=== PATIENT | female | born 1930 | race Hispanic/Latino ===

== ENCOUNTER 2017-04-28 10:49 | Emergency (ER) | payer MEDICARE, OTHER ==
[2017-04-28 11:53] LABS: Urine Bilirubin Negative (NEGATIVE); Urine Ketone Negative (NEGATIVE); Urine Nitrite Negative (NEGATIVE); Urine Protein Negative (NEGATIVE); Urine Specific Gravity <=1.005 SP.GR. (1.005-1.010); Urine Urobilinogen Normal (NORMAL); Urine pH 6.5 pH (5.0-7.0)
[2017-04-28 12:03] LABS: Urine Amorphous Sediment Moderate - 2+ (NONE-FEW); Urine Appearance Clear; Urine Bacteria None Seen; Urine Blood 5 /ul (NEGATIVE); Urine Color Yellow; Urine RBC TRACE /hpf (0-5); Urine WBC TRACE /hpf (0-5)
--- NOTE | 2017-04-28 12:10 | ERNOTE ---
ER Female HPI Stated Complaint: DIFFICULTY URINATING Presenting Symptoms: other Time Seen by Provider: 04/28/17 11:48 Source: patient, family Exam Limitations: no limitations Immunizations: IMMUNIZATION HX Immunizations Up to Date Yes History of Influenza Vaccine Yes Hx Pneumococcal Vaccination Yes Allergies/Adverse Reactions: Allergies streptomycin [Streptomycin] Allergy (Severe, Verified 04/28/17 11:00) "PASSED OUT" tramadol Allergy (Severe, Verified 04/28/17 11:00) "FELT LIKE THINGS WERE CLOSING UP" ANAPHYLAXIS levofloxacin [From Levaquin] Allergy (Verified 04/28/17 11:00) Other Home Medications: HOME MEDICATIONS Albuterol Sulfate [Albuterol Sulfate 2.5 MG/0.5ML] 2.5 mg IH BID 09/19/13 [Last Taken Unknown] Cetirizine HCl [Allergy Relief] 10 mg PO DAILY 09/19/13 [Last Taken 09/18/13] Pantoprazole Sodium [Protonix] 20 mg PO BID #60 tablet. 04/21/15 [Last Taken Unknown] Wheat Dextrin [Benefiber] 2 tsp PO DAILY #236 gm 04/26/15 [Last Taken Unknown] Beta-Carotene(A) W-C , E/Min [Ocuvite] 1 tab PO DAILY 12/13/15 [Last Taken Unknown] Calcium Carbonate/Vitamin D3 [Calcium 500+D Tablet Chew] 2 each PO DAILY [Last Taken Unknown] Ginkgo Biloba [place] Extract [Ginkgo Biloba] 400 mg PO DAILY 12/13/15 [Last Taken Unknown] Albuterol Sulfate [Ventolin HFA] 2 puff INH Q6H PRN 12/18/15 [Last Taken Unknown ] Cyanocobalamin [Vitamin B-12] 1,000 mcg PO DAILY 12/18/15 [Last Taken Unknown] FA/Vit C/E/Zinc/Copper/Lut/Ana [Ocuvel Capsule] 1 each PO DAILY 12/18/15 [Last Taken Unknown] Multivit with Calcium,Iron,Min [Women's Daily Formula] 1 tab PO BID 12/18/15 [ Last Taken Unknown] oxyCODONE HCL/ACETAMINOPHEN [Percocet 5 MG/325 MG] 5 - 325 mg PO Q6H PRN [Last Taken Unknown] Potassium 99 mg PO DAILY 03/05/16 [Last Taken Unknown] Budesonide/Formoterol Fumarate [Symbicort 160-4.5 Mcg Inhaler] 2 puff IH BID 10/31 [Last Taken Unknown] Furosemide [Lasix] 40 mg PO DAILY 04/21/17 [Last Taken Unknown] amLODIPine BESYLATE [Norvasc] 5 mg PO HS 04/21/17 [Last Taken Unknown] Budesonide/Formoterol Fumarate [Symbicort 160-4.5 Mcg Inhaler] 2 puff INH BID [Last Taken Unknown] predniSONE [Prednisone] 40 mg PO DAILY 04/28/17 [Last Taken Unknown] - History of Present Illness Narrative: Patient is here for urinary retention. She states that over the last few days she has only been able to urinate small amounts, though she feels like she has to go. She has had abdominal pain for over a months that has increased over the last week. Dr Castro ordered a CT for her which she had prior to coming here. She was seen in the ER a week ago for back pain, started on percocet, she has been constipated since. Timing: Present: getting worse Prior Abdominal Problems: Absent: none, recent trauma Associated Symptoms: Present: vomiting - last night, has been able to eat since. Absent: fever/chills, nausea Prior Treatment: Present: recently seen. Absent: currently on antibiotics Review of Systems - Review of Systems Constitutional: Present: malaise. Absent: recent illness, fever ENT: Absent: nose congestion, sore throat Respiratory: Absent: shortness of breath Cardiology: Absent: chest pain Gastrointestinal/Abdominal: Present: vomiting - yesterday, eating today Genitourinary: Present: See HPI Musculoskeletal: Present: back pain Neurological: Present: weakness - generalized - Patient's Past Medical History Patient History - Medical: Anemia, Anxiety, GERD, Osteoarthritis, Osteoporosis Patient History - Cardiac/Respiratory: COPD, Hypertension, Hyperlipidemia Patient History - Cancer: No Hx of Cancer Patient History - Surgical Procedures: Appendectomy, Cholecystectomy, Colonoscopy, Hysterectomy, T & A Patient History - Other: None LMP (females 10-50): post men - Family History Grandfather-Paternal Family History - Medical: , No pertinent hx Family History - Cardiac/Respiratory: No pertinent hx Grandmother-Paternal Family History - Medical: , No pertinent hx Family History - Cardiac/Respiratory: No pertinent hx Mother Family History - Medical: , No pertinent hx Family History - Cardiac/Respiratory: CHF Father Family History - Medical: , No pertinent hx Family History - Cardiac/Respiratory: No pertinent hx - Social History Living Situations: home Abuse History: No History of abuse Psych History: No pertinent hx Smoking Status: Never smoker Alcohol Use: none Drug Use: none - Immunizations Immunizations Up to Date: Yes Hx Pneumococcal Vaccination: Yes History of Influenza Vaccine: Yes Physical Exam - Physical Exam General Appearance: Present: wd/wn, alert, mild distress Eye Exam: Normal inspection: bilateral, PERRL: bilateral Respiratory: Present: no respiratory distress, normal breath sounds, no accessory muscle use, decreased breath sounds Cardiovascular/Chest: Present: regular rate, rhythm, no murmur Pelvic Exam: Present: other - cystocele Extremity Exam: Present: pedal edema Neurological Exam: Present: alert, oriented, normal mood/affect Skin Exam: Present: normal color, warm/dry ED Progress - Results and Orders Patient's Lab Results:: I have reviewed the patient's lab results. - Vital Signs Patient's Vital Signs:: I have reviewed the patient's vital signs. Vital Signs: Vital Signs 04/28/17 04/28/17 10:52 11:31 Temperature 37.0 C Pulse Rate 73 72 Respiratory 12 Rate Blood Pressure 158/64 154/58 O2 Sat by Pulse 97 99 Oximetry - Progress/Reassessment Chief Complaint: Genitourinary Problem Progress Note-Subjective: 04/28/17 11:[address] findings with radiologist (left inguinal hernia, possible cystocele) discussed findings with patient and family 04/28/17 12:10 discussed lab results with patient and family, feeling much better after catheter insertion 04/28/17 12:[address] Shetty for for possible pessary placement 04/28/17 12:[address] Castro on plan 04/28/17 12:34 discussed plan with patient and family constipation improved by CT contrast Departure Clinical Impression: Urinary retention Cystocele Qualifiers: Cystocele location: midline Qualified Code(s): N81.11 - Cystocele, midline - Departure Disposition: Home self-care Condition: Good Instructions: Acute Urinary Retention, Female, [id number] Additional Instructions: if you start to get constipated from the pain medication again start taking senokot follow up with Dr Shetty on Wednesday Referrals: Antonino Shetty DO [Staff Physician] - 05/03/17 9:00 am
[2017-04-28 13:02] VITALS: BP 148/59
== END 2017-04-28 13:03 | disposition home or self-care (01) ==
LOC: ER 10:49
PROC: 0T9B70Z Drainage of Bladder with Drainage Device, Via Natural or Artificial Opening (ICD-10-PCS; principal; 2017-04-28)
PROC: 4A0D7LZ Measurement of Urinary Volume, Via Natural or Artificial Opening (ICD-10-PCS; 2017-04-28)
DX: N81.11 Cystocele, midline (principal); R33.9 Retention of urine, unspecified; R10.84 Generalized abdominal pain; I10 Essential (primary) hypertension; K21.9 Gastro-esophageal reflux disease without esophagitis; J44.9 Chronic obstructive pulmonary disease, unspecified

== ENCOUNTER 2017-04-30 11:40 | Inpatient (IN) | payer MEDICARE, OTHER ==
[2017-04-30] MEDS ORDERED: ONDANSETRON HCL/PF 2 MG/ML VIAL IV ONE (12:05)
--- NOTE | 2017-04-30 12:18 | ERNOTE ---
ER Female HPI Date of Service: 04/30/17 Stated Complaint: DARK URINE IN CATHETER Presenting Symptoms: other - dark urine Time Seen by Provider: 04/30/17 11:55 Source: patient Exam Limitations: no limitations Immunizations: IMMUNIZATION HX Immunizations Up to Date Yes History of Influenza Vaccine Yes Hx Pneumococcal Vaccination Yes Allergies/Adverse Reactions: Allergies streptomycin [Streptomycin] Allergy (Severe, Verified 04/30/17 11:55) "PASSED OUT" tramadol Allergy (Severe, Verified 04/30/17 11:55) "FELT LIKE THINGS WERE CLOSING UP" ANAPHYLAXIS levofloxacin [From Levaquin] Allergy (Verified 04/30/17 11:55) Other Home Medications: HOME MEDICATIONS Albuterol Sulfate [Albuterol Sulfate 2.5 MG/0.5ML] 2.5 mg IH BID 09/19/13 [Last Taken Unknown] Cetirizine HCl [Allergy Relief] 10 mg PO DAILY 09/19/13 [Last Taken 09/18/13] Pantoprazole Sodium [Protonix] 20 mg PO BID #60 tablet. 04/21/15 [Last Taken Unknown] Wheat Dextrin [Benefiber] 2 tsp PO DAILY #236 gm 04/26/15 [Last Taken Unknown] Beta-Carotene(A) W-C , E/Min [Ocuvite] 1 tab PO DAILY 12/13/15 [Last Taken Unknown] Calcium Carbonate/Vitamin D3 [Calcium 500+D Tablet Chew] 2 each PO DAILY [Last Taken Unknown] Ginkgo Biloba [place] Extract [Ginkgo Biloba] 400 mg PO DAILY 12/13/15 [Last Taken Unknown] Albuterol Sulfate [Ventolin HFA] 2 puff INH Q6H PRN 12/18/15 [Last Taken Unknown ] Cyanocobalamin [Vitamin B-12] 1,000 mcg PO DAILY 12/18/15 [Last Taken Unknown] FA/Vit C/E/Zinc/Copper/Lut/Ana [Ocuvel Capsule] 1 each PO DAILY 12/18/15 [Last Taken Unknown] Multivit with Calcium,Iron,Min [Women's Daily Formula] 1 tab PO BID 12/18/15 [ Last Taken Unknown] oxyCODONE HCL/ACETAMINOPHEN [Percocet 5 MG/325 MG] 5 - 325 mg PO Q6H PRN 08/03/ 16 [Last Taken Unknown] Potassium 99 mg PO DAILY 03/05/16 [Last Taken Unknown] Budesonide/Formoterol Fumarate [Symbicort 160-4.5 Mcg Inhaler] 2 puff IH BID 10/31 [Last Taken Unknown] Furosemide [Lasix] 40 mg PO DAILY 04/21/17 [Last Taken Unknown] amLODIPine BESYLATE [Norvasc] 5 mg PO HS 04/21/17 [Last Taken Unknown] Budesonide/Formoterol Fumarate [Symbicort 160-4.5 Mcg Inhaler] 2 puff INH BID [Last Taken Unknown] predniSONE [Prednisone] 40 mg PO DAILY 04/28/17 [Last Taken Unknown] - History of Present Illness Narrative: Pt. comes in with daughters and c/o dark urine for two days. Daughters also state that pt. has had increased weakness, fatigue, nausea and vomiting and constipation. Daughters state that pt. had a small BM two days ago but has not had any others and is not eating or drinking very much because of her abdominal symptoms. Pt. was seen here three days ago and was diagnosed with bladder prolapse and a urinary catheter was placed. Pt. nx0mgls any pain where her catheter is placed at. Review of Systems - Review of Systems Constitutional: Present: weakness, fatigue, malaise. Absent: fever, chills EYE: Present: no symptoms reported. Absent: eye pain, double vision, vision changes ENT: Present: no symptoms reported. Absent: nose pain, nose congestion Respiratory: Present: no symptoms reported. Absent: shortness of breath, cough , wheezing Cardiology: Present: no symptoms reported. Absent: chest pain, palpitations, edema Gastrointestinal/Abdominal: Present: nausea, vomiting, constipation, abdominal pain, eating less, drinking less. Absent: diarrhea Genitourinary: Present: decreased urinary output, other - dark urine Musculoskeletal: Present: back pain - L flank. Absent: muscle pain, neck pain, joint pain, joint swelling Neurological: Present: no symptoms reported. Absent: headache, dizziness/light- headedness, numbness, tingling Endocrine: Present: no symptoms reported All Other Systems: All systems neg except as marked - Patient's Past Medical History Patient History - Medical: Anemia, Anxiety, GERD, Osteoarthritis, Osteoporosis Patient History - Cardiac/Respiratory: COPD, Hypertension, Hyperlipidemia Patient History - Cancer: No Hx of Cancer Patient History - Surgical Procedures: Appendectomy, Cholecystectomy, Colonoscopy, Hysterectomy, T & A Patient History - Other: None - Family History Grandfather-Paternal Family History - Medical: , No pertinent hx Family History - Cardiac/Respiratory: No pertinent hx Grandmother-Paternal Family History - Medical: , No pertinent hx Family History - Cardiac/Respiratory: No pertinent hx Mother Family History - Medical: , No pertinent hx Family History - Cardiac/Respiratory: CHF Father Family History - Medical: , No pertinent hx Family History - Cardiac/Respiratory: No pertinent hx - Social History Living Situations: home Abuse History: No History of abuse Psych History: No pertinent hx - Immunizations Immunizations Up to Date: Yes Hx Pneumococcal Vaccination: Yes History of Influenza Vaccine: Yes Physical Exam - Physical Exam General Appearance: Present: wd/wn, alert, no apparent distress Head Exam: Present: normal inspection, no evidence of injury Eye Exam: Normal inspection: bilateral, PERRL: bilateral, EOMI: bilateral Ears, Nose, Throat: Present: normal except -, dry mucous membranes Neck: Present: normal inspection, nontender, supple, full range of motion. Absent: lymphadenopathy (R), lymphadenopathy (L) Respiratory: Present: no respiratory distress, normal breath sounds, no accessory muscle use, chest nontender, lungs clear Cardiovascular/Chest: Present: regular rate, rhythm, no murmur, normal peripheral pulses Gastrointestinal/Abdominal: Present: tenderness - generalized LLQ, LUQ, abnormal bowel sounds - hypo tympanic Back Exam: Present: normal inspection, normal range of motion, no vertebral tenderness, CVA tenderness (L) Extremity Exam: Present: normal inspection, non-tender, normal range of motion, no edema Neurological Exam: Present: alert, oriented, normal mood/affect, no motor/ sensory deficits, pbx supervisor II-XII nml as tested, normal cerebellar test Skin Exam: Present: warm/dry, pallor, other - poor skin turgor ED Progress - Date and Time Seen: Date and Time: 04/30/17 13:[address] Castro and he accepts pt. for admission and we will continue pt. on slow fluids and abx and start enemas and laxatives. - Results and Orders Patient's Lab Results:: I have reviewed the patient's lab results. - Vital Signs Patient's Vital Signs:: I have reviewed the patient's vital signs. Vital Signs: Vital Signs 04/30/17 11:49 Temperature 36.0 C L Pulse Rate 72 Respiratory 12 Rate Blood Pressure 146/49 O2 Sat by Pulse 97 Oximetry - EKG EKG: NSR EKG read: Interp. by me - X-Ray X-Ray #1 X-Ray: abdomen Interpretation: Reviewed by me X-ray Comments: no free air, nonobstructive bowel gas pattern, moderate stool retention. - Progress/Reassessment Chief Complaint: Genitourinary Problem Departure Clinical Impression: Urinary retention, Constipation due to opioid therapy, Electrolyte and fluid disorder, Hyponatremia Cystocele Qualifiers: Cystocele location: midline Qualified Code(s): N81.11 - Cystocele, midline Nausea and vomiting Qualifiers: Vomiting type: unspecified Vomiting Intractability: non-intractable Qualified Code(s): R11.2 - Nausea with vomiting, unspecified - Departure Disposition: [facility] Condition: Fair Referrals: Mulugeta Castro DO [Primary Care Provider] -
[2017-04-30] MEDS ORDERED: ONDANSETRON HCL/PF 2 MG/ML VIAL ONE (12:22)
[2017-04-30] MEDS: NORMAL SALINE 1,000 ML IV ONE ×2 (12:32→20:25)
[2017-04-30 12:33] LABS: Urine Bilirubin Negative (NEGATIVE); Urine Blood 250 /ul (NEGATIVE); Urine Ketone 50 mg/dL (NEGATIVE); Urine Protein 30 mg/dL (NEGATIVE); Urine Specific Gravity 1.015 SP.GR. (1.005-1.010); Urine Urobilinogen Normal (NORMAL)
[2017-04-30 12:41] LABS: Hematocrit 28.1 % (37.0-47.0); Hemoglobin 10.2 gm/dL (12.5-16.0); Mean Cell Volume 83.1 fl (78-100); Mean Corpuscular Hemoglobin 30.2 pg (27-31); Mean Corpuscular Hgb Conc 36.3 g/dl (32-36); Neutrophil # 6.7 K/mm3 (1.3-6.0); Neutrophil % 88.1 % (42-75.0); Platelet Count 342 K/mm3 (150-450); Red Blood Count 3.38 M/mm3 (4.2-5.4); Red Cell Distribution Width 12.8 % (11.5-14.0); White Blood Count 7.6 K/mm3 (4.0-10.5)
[2017-04-30 12:48] LABS: Urine Appearance Cloudy; Urine Bacteria 3+; Urine Color Dark Yellow; Urine Nitrite Positive (NEGATIVE); Urine RBC >50 /hpf (0-5)
[2017-04-30 12:49] LABS: Albumin * 3.2 gm/dl (3.4-5.0); Anion Gap 8.7 mmol/L (6.8-13.8); Bilirubin, Total 0.5 mg/dL (0.0-1.1); CRP 0.5 mg/dL (0.0-0.9); Ca. Corrected For Albumin 8.2 mg/dL (8.4-10.2); Calcium * 7.9 mg/dL (7.9-10.9); Potassium 3.7 mmol/L (3.4-4.6); Total Protein 6.7 gm/dL (6.2-8.2)
[2017-04-30] MEDS ORDERED: KETOROLAC TROMETHAMINE 30 MG/ML VIAL IV ONE (13:51)
[2017-04-30] MEDS ORDERED: KETOROLAC TROMETHAMINE 30 MG/ML VIAL ONE (13:53)
[2017-04-30] MEDS ORDERED: MAGNESIUM CITRATE 300 ML BTL PO ONE (15:36)
[2017-04-30] MEDS ORDERED: FUROSEMIDE 10 MG/ML VIAL IV ONE (16:00)
[2017-04-30] MEDS ORDERED: ALBUTEROL SULFATE 2.5 MG/0.5 ML VIAL.NEB IH PRN (16:00)
[2017-04-30] MEDS: oxyCODONE HCL/ACETAMINOPHEN 1 TAB TABLET PO PRN ×2 (16:14→21:59)
--- NOTE | 2017-04-30 17:50 | HP ---
Chief Complaint - Chief Complaint Date of Service: 04/30/17 Time of Service: 16:00 Chief Complaint: Weakness, poor urine output, nausea, vomiting History of Present Illness: Alem is an 86 yo female presenting to [facility] ER with weakness, nausea, vomiting, poor urinary output, and back pain. She was seen in the ER recently with urinary retention that was suspected to be secondary to urocele. She had a schmidt catheter with leg bag placed and set up with gynecology, who she has not seen yet. Patient's condition at home worsened with more weakness, nausea, vomiting, and poor oral intake. She returned to the ER today. She reports mid back pain without radiation. Family notes urine has been dark. She has been taking lasix daily but legs remain edematous. - Patient's Past Medical History Patient History - Medical: Anemia, Anxiety, GERD, Osteoarthritis, Osteoporosis Patient History - Cardiac/Respiratory: COPD, Hypertension, Hyperlipidemia Patient History - Cancer: No Hx of Cancer Patient History - Surgical Procedures: Appendectomy, Cholecystectomy, Colonoscopy, Hysterectomy, T & A Patient History - Other: None - Family History Grandfather-Paternal Family History - Medical: , No pertinent hx Family History - Cardiac/Respiratory: No pertinent hx Grandmother-Paternal Family History - Medical: , No pertinent hx Family History - Cardiac/Respiratory: No pertinent hx Mother Family History - Medical: , No pertinent hx Family History - Cardiac/Respiratory: CHF Family History - Cancer: Colon Father Family History - Medical: , No pertinent hx Family History - Cardiac/Respiratory: No pertinent hx Family History - Cancer: No pertinent family hx Brother Family History - Medical: Sister Family History - Medical: - Social History Living Situations: home Abuse History: No History of abuse Psych History: No pertinent hx Smoking Status: Never smoker Have you smoked in the past 12 months: No Do you dip or chew tobacco: No Patient requests Smoking Cessation Consult: No Initiate information on Smoking Cessation: No Alcohol Use: none Drug Use: none - Immunizations Immunizations Up to Date: Yes Hx Pneumococcal Vaccination: Yes History of Influenza Vaccine: Yes Review Of Systems (GEN) - Review of Systems Generalized/Overall Review: Present: Weakness, Chills, Fatigue. Absent: Fever EENTM: Present: No Symptoms Reported Respiratory: Present: No Symptoms Reported Cardiac: Present: Edema. Absent: Chest Pain Abdominal: Present: Nausea, Vomiting, Abdominal Pain, Constipation Genitourinary: Present: Retention - Currently with schmidt Musculoskeletal: Present: Back Pain, Other - Jaw dislocates and locks when she yawns Neurological: Present: No Symptoms Reported Skin: Present: No Symptoms Reported Immunizations: IMMUNIZATION HX Immunizations Up to Date Yes History of Influenza Vaccine Yes Hx Pneumococcal Vaccination Yes Allergies/Adverse Reactions: Allergies Allergy/AdvReac Type Severity Reaction Status Date / Time streptomycin [Streptomycin] Allergy Severe "PASSED Verified 04/30/17 14:48 OUT" tramadol Allergy Severe "FELT LIKE Verified 04/30/17 14:48 THINGS WERE CLOSING UP" levofloxacin [From Levaquin] Allergy Other Verified 04/30/17 14:48 Home Medications: HOME MEDICATIONS Cetirizine HCl [Allergy Relief] 10 mg PO DAILY 09/19/13 [Last Taken 09/18/13] Pantoprazole Sodium [Protonix] 20 mg PO BID #60 tablet. 04/21/15 [Last Taken Unknown] Wheat Dextrin [Benefiber] 2 tsp PO DAILY #236 gm 04/26/15 [Last Taken Unknown] Beta-Carotene(A) W-C , E/Min [Ocuvite] 1 tab PO DAILY 12/13/15 [Last Taken Unknown] Calcium Carbonate/Vitamin D3 [Calcium 500+D Tablet Chew] 2 each PO DAILY [Last Taken Unknown] Ginkgo Biloba [place] Extract [Ginkgo Biloba] 400 mg PO DAILY 12/13/15 [Last Taken Unknown] Albuterol Sulfate [Ventolin HFA] 2 puff INH Q6H PRN 12/18/15 [Last Taken Unknown ] Cyanocobalamin [Vitamin B-12] 1,000 mcg PO DAILY 12/18/15 [Last Taken Unknown] FA/Vit C/E/Zinc/Copper/Lut/Ana [Ocuvel Capsule] 1 each PO DAILY 12/18/15 [Last Taken Unknown] Multivit with Calcium,Iron,Min [Women's Daily Formula] 1 tab PO BID 12/18/15 [ Last Taken Unknown] oxyCODONE HCL/ACETAMINOPHEN [Percocet 5 MG/325 MG] 5 - 325 mg PO Q6H PRN [Last Taken Unknown] Potassium 99 mg PO DAILY 03/05/16 [Last Taken Unknown] Furosemide [Lasix] 40 mg PO DAILY PRN 04/21/17 [Last Taken Unknown] amLODIPine BESYLATE [Norvasc] 5 mg PO HS 04/21/17 [Last Taken Unknown] Budesonide/Formoterol Fumarate [Symbicort 160-4.5 Mcg Inhaler] 2 puff INH BID [Last Taken Unknown] predniSONE [Prednisone] 40 mg PO DAILY 04/28/17 [Last Taken Unknown] Exam - Exam Vital Signs: Vital Signs - Last Taken Temp 36.8 C 04/30/17 15:15 Pulse 75 04/30/17 16:14 Resp 18 04/30/17 15:15 BP 146/49 04/30/17 16:14 Pulse Ox 97 04/30/17 15:15 Constitutional: Present: Alert, Oriented x3, Cooperative ENT Exam: Present: hearing grossly normal Eye Exam: bilateral eye: normal inspection Neck: Present: non-tender, full range of motion, supple, normal inspection Respiratory: Present: lungs clear, normal breath sounds Cardiovascular/Chest: Present: regular rate, rhythm, no murmur, edema - 3+ bilateral lower extremities Abdomen: Present: Normal bowel sounds, soft, nontender, nondistended, tender - diffuse Skin Exam: Present: normal color, warm/dry, no cyanosis Neurologic: Present: alert, normal mood/affect, oriented x 3 Appearance: Present: appropriate appearance, appropriate insight Eye contact: Present: cooperative, good eye contact, normal speech Diagnostic Studies: Abnormal Lab Results 04/30/17 Range/Units 15:06 Sodium 115 L* (132-142) mmol/L Laboratory Results WBC 7.6 K/mm3 (4.0-10.5) 04/30/17 12:25 RBC 3.38 M/mm3 (4.2-5.4) L 04/30/17 12:25 Hgb 10.2 gm/dL (12.5-16.0) L 04/30/17 12:25 Hct 28.1 % (37.0-47.0) L 04/30/17 12:25 MCV 83.1 fl (78-100) 04/30/17 12:25 MCH 30.2 pg (27-31) 04/30/17 12:25 MCHC 36.3 g/dl (32-36) H 04/30/17 12:25 RDW 12.8 % (11.5-14.0) 04/30/17 12:25 Plt Count 342 K/mm3 (150-450) 04/30/17 12:25 MPV 9.0 fl (6.0-9.5) 04/30/17 12:25 Immature Gran % (Auto) 0.40 % (0.001-0.429) 04/30/17 12:25 Immature Gran # (Auto) 0.03 K/mm3 (0.000-0.0310) 04/30/17 12:25 Neutrophils % 88.1 % (42-75.0) H 04/30/17 12:25 Lymphocytes % 5.5 % (20-51) L 04/30/17 12:25 Monocytes % 5.8 % (0.0-9) 04/30/17 12:25 Eosinophils % 0.1 % (0.0-3.0) 04/30/17 12:25 Basophils % 0.1 % (0.0-1.0) 04/30/17 12:25 Nucleated RBC % 0.0 k/mm3 (0-1) 04/30/17 12:25 Neutrophils # 6.7 K/mm3 (1.3-6.0) H 04/30/17 12:25 Lymphocytes # 0.4 k/mm3 (1.5-3.5) L 04/30/17 12:25 Monocytes # 0.4 k/mm3 (0.0-1.0) 04/30/17 12:25 Eosinophils # 0.0 k/mm3 (0.0-0.7) 04/30/17 12:25 Absolute Basophils 0.0 k/mm3 (0.0-0.1) 04/30/17 12:25 ESR 19 mm/hr (0-15) H 04/30/17 12:25 Sodium 115 mmol/L (132-142) L* 04/30/17 15:06 Plasma Sodium 111 mmol/L (130-142) L* 04/30/17 12:25 Potassium 3.7 mmol/L (3.4-4.6) 04/30/17 12:25 Chloride 78 mmol/L (97-106) L 04/30/17 12:25 Carbon Dioxide 28.0 mmol/L (24-32.6) 04/30/17 12:25 Anion Gap 8.7 mmol/L (6.8-13.8) 04/30/17 12:25 BUN 9 mg/dL (3-23) 04/30/17 12:25 Creatinine 0.50 mg/dL (0.4-1.4) 04/30/17 12:25 Est GFR (Non-Af Amer) 124 mL/min (60-130) D 04/30/17 12:25 BUN/Creatinine Ratio 18.0 (9.0-21.6) 04/30/17 12:25 Random Glucose 117 mg/dL (70-110) H 04/30/17 12:25 Lactic Acid, Venous 0.8 mmol/L (0.4-1.9) 04/30/17 12:25 Calcium 7.9 mg/dL (7.9-10.9) 04/30/17 12:25 Calcium Adj for Albumin 8.2 mg/dL (8.4-10.2) L 04/30/17 12:25 Total Bilirubin 0.5 mg/dL (0.0-1.1) 04/30/17 12:25 AST 29 U/L (0-48) 04/30/17 12:25 ALT 41 U/L (19-67) 04/30/17 12:25 Alkaline Phosphatase 94 U/L (50-170) 04/30/17 12:25 C-Reactive Prot, Quant 0.5 mg/dL (0.0-0.9) 04/30/17 12:25 B-Natriuretic Peptide 1142 pg/mL (5-550) H 04/30/17 12:25 Total Protein 6.7 gm/dL (6.2-8.2) 04/30/17 12:25 Albumin 3.2 gm/dl (3.4-5.0) L 04/30/17 12:25 Urine Color Dark yellow 04/30/17 12:27 Urine Appearance Cloudy 04/30/17 12:27 Urine pH 6.0 pH (5.0-7.0) 04/30/17 12:27 Ur Specific [place] 1.015 SP.GR. (1.005-1.010) 04/30/17 12:27 Urine Protein 30 mg/dL (NEGATIVE) H 04/30/17 12:27 Urine Glucose (UA) Negative mg/dL (NEGATIVE) 04/30/17 12:27 Urine Ketones 50 mg/dL (NEGATIVE) 04/30/17 12:27 Urine Blood 250 /ul (NEGATIVE) H 04/30/17 12:27 Urine Nitrate Positive (NEGATIVE) H 04/30/17 12:27 Urine Bilirubin Negative mg/dl (NEGATIVE) 04/30/17 12:27 Prot Sulfosalicylic Acd 2+ mg/dL (0) H 04/30/17 12:27 Urine Urobilinogen Normal EU/dl (NORMAL) 04/30/17 12:27 Ur Leukocyte Esterase 100 /ul (NEGATIVE) H 04/30/17 12:27 Urine RBC >50 /hpf (0-5) H 04/30/17 12:27 Urine WBC 5-10 /hpf (0-5) H 04/30/17 12:27 Ur Epithelial Cells None seen /hpf (0-5) 04/30/17 12:27 Urine Bacteria 3+ (NONE) H 04/30/17 12:27 Urine Culture Comments Culture to follow 04/30/17 12:27 Assessment/Plan - Narrative Narrative: Alem is an 86 yo female with: 1) Severe Hyponatremia of 111 - This critical sodium needs to be corrected slowly. Currently on 125ml/hr of Normal saline as she appears hypovolumic ( intravascularily). She is also third spacing and will therefore treat with IV lasix. Will monitor sodium and adjust correction as needed. Will need >2 midnights to correct sodium and monitor stability. 2) UTI - Treated with Rocephin, culture pending. 3) Constipation - Stool retention on abdominal xray. Will give magnesium citrate. Monitor results 4) Back pain - Continue percocet 5) Nausea/vomiting - Zofran prn, may be secondary to constipation. - Assessment/Plan (1) Hyponatremia Problem: Acute (2) UTI (urinary tract infection) Problem: Acute (3) Constipation due to opioid therapy Problem: Acute (4) Cystocele Problem: Acute Qualifiers: Cystocele location: midline Qualified Code(s): N81.11 - Cystocele, midline (5) Nausea and vomiting Problem: Acute Qualifiers: Vomiting type: unspecified Vomiting Intractability: non-intractable Qualified Code(s): R11.2 - Nausea with vomiting, unspecified (6) Urinary retention Problem: Acute (7) Back pain Problem: Acute
[2017-04-30] MEDS: FLUTICASONE/SALMETEROL 14 PUFF DISK.W.DEV IH SCH (20:18)
[2017-04-30] MEDS: amLODIPine BESYLATE 5 MG TABLET PO SCH (20:19)
[2017-04-30] MEDS: PANTOPRAZOLE SODIUM 20 MG TABLET.DR PO SCH (20:19)
[2017-04-30 22:49] LABS: Anion Gap 7.7 mmol/L (6.8-13.8); BUN/Creatinine Ratio 20.4 (9.0-21.6); Calcium * 7.3 mg/dL (7.9-10.9); Carbon Dioxide 28.7 mmol/L (24-32.6); Estimated Creat Clear 56.2; Potassium 3.4 mmol/L (3.4-4.6)
[2017-05-01] MEDS: oxyCODONE HCL/ACETAMINOPHEN 1 TAB TABLET PO PRN (04:08)
[2017-05-01] MEDS: NORMAL SALINE 1,000 ML IV PRN ×2 (04:13→18:07)
[2017-05-01] MEDS: PANTOPRAZOLE SODIUM 20 MG TABLET.DR PO SCH ×2 (07:35→20:47)
[2017-05-01] MEDS: FLUTICASONE/SALMETEROL 14 PUFF DISK.W.DEV IH SCH ×2 (09:23→20:47)
[2017-05-01] MEDS: CYANOCOBALAMIN 1,000 MCG TABLET PO SCH (09:23)
[2017-05-01] MEDS: LORATADINE 10 MG TABLET PO SCH (09:23)
[2017-05-01] MEDS: BETA-CAROTENE(A) W-C , E/MIN 1 TAB TABLET PO SCH (09:23)
[2017-05-01] MEDS ORDERED: oxyCODONE HCL/ACETAMINOPHEN 1 TAB TABLET PO PRN (10:42)
[2017-05-01] MEDS: amLODIPine BESYLATE 5 MG TABLET PO SCH (20:47)
[2017-05-02] MEDS: NORMAL SALINE 1,000 ML IV PRN ×2 (07:32→22:10)
[2017-05-02] MEDS: PANTOPRAZOLE SODIUM 20 MG TABLET.DR PO SCH ×2 (07:32→20:21)
[2017-05-02] MEDS: FLUTICASONE/SALMETEROL 14 PUFF DISK.W.DEV IH SCH ×2 (08:54→20:19)
[2017-05-02] MEDS: LORATADINE 10 MG TABLET PO SCH (08:54)
[2017-05-02] MEDS: BETA-CAROTENE(A) W-C , E/MIN 1 TAB TABLET PO SCH (08:54)
[2017-05-02] MEDS: CYANOCOBALAMIN 1,000 MCG TABLET PO SCH (08:54)
--- NOTE | 2017-05-02 10:27 | PN ---
Subjective - Date and Time Seen Date: 05/01/17 Time: 10:00 Subjective Narrative: Reports back pain and weakness. No fever, chills, nausea, or vomiting. Objective - Vitals Vitals: Last Vital Signs Selected Entries 05/01/17 06:24 Temperature 36.9 C Pulse Rate 68 Respiratory 20 Rate Blood Pressure 145/51 O2 Sat by Pulse 98 Oximetry Oxygen Delivery Room Air Method - Exam Constitutional: Present: Alert, Oriented x3, Cooperative ENT Exam: Present: hearing grossly normal Respiratory: Present: lungs clear, normal breath sounds Cardiovascular/Chest: Present: regular rate, rhythm, no murmur Abdomen: Present: Normal bowel sounds, soft, nontender, nondistended Skin Exam: Present: normal color, warm/dry, no cyanosis Assessment/Plan Plan Narrative: Continue fluids for hyponatremia. Sodium is slowly improving. Continue antibiotics for UTI. Continue schmidt catheter for retention, this may be secondary to UTI vs cystocele. Will discontinue after another day of antibiotics and see if this resolves with UTI treatment. - Problems/Diagnosis (1) Hyponatremia Problem: Acute (2) UTI (urinary tract infection) Problem: Acute (3) Constipation due to opioid therapy Problem: Acute (4) Cystocele Problem: Acute Qualifiers: Cystocele location: midline Qualified Code(s): N81.11 - Cystocele, midline Narrative: Follow up with gynecology. (5) Nausea and vomiting Problem: Resolved Qualifiers: Vomiting type: unspecified Vomiting Intractability: non-intractable Qualified Code(s): R11.2 - Nausea with vomiting, unspecified (6) Urinary retention Problem: Acute (7) Back pain Problem: Acute
[2017-05-02 10:48] LABS: Hematocrit 27.3 % (37.0-47.0); Hemoglobin 9.5 gm/dL (12.5-16.0); Mean Cell Volume 86.4 fl (78-100); Mean Corpuscular Hemoglobin 30.1 pg (27-31); Mean Corpuscular Hgb Conc 34.8 g/dl (32-36); Mean Platelet Volume 8.4 fl (6.0-9.5); Neutrophil # 5.7 K/mm3 (1.3-6.0); Neutrophil % 77.7 % (42-75.0); Platelet Count 327 K/mm3 (150-450); Red Blood Count 3.16 M/mm3 (4.2-5.4); Red Cell Distribution Width 13.6 % (11.5-14.0); White Blood Count 7.3 K/mm3 (4.0-10.5)
[2017-05-02 11:02] LABS: Albumin * 2.8 gm/dl (3.4-5.0); Anion Gap 11.3 mmol/L (6.8-13.8); BUN/Creatinine Ratio 14.6 (9.0-21.6); Bilirubin, Total 0.2 mg/dL (0.0-1.1); Calcium * 7.4 mg/dL (7.9-10.9); Carbon Dioxide 26.1 mmol/L (24-32.6); Potassium 3.4 mmol/L (3.4-4.6)
[2017-05-02] MEDS ORDERED: POTASSIUM CHLORIDE 20 MEQ TABLET.SA PO ONE (11:07)
[2017-05-02] MEDS: SENNOSIDES/DOCUSATE SODIUM 1 TAB TABLET PO SCH ×2 (11:49→20:21)
[2017-05-02] MEDS: oxyCODONE HCL/ACETAMINOPHEN 1 TAB TABLET PO SCH ×5 (11:57→23:43)
[2017-05-02] MEDS: amLODIPine BESYLATE 5 MG TABLET PO SCH (20:20)
[2017-05-03] MEDS: oxyCODONE HCL/ACETAMINOPHEN 1 TAB TABLET PO SCH ×4 (03:22→11:51)
[2017-05-03] MEDS: PANTOPRAZOLE SODIUM 20 MG TABLET.DR PO SCH (07:20)
--- NOTE | 2017-05-03 08:05 | PN ---
Subjective - Date and Time Seen Date: 05/02/17 Time: 11:23 Subjective Narrative: Feeling better but still week. No fever, chills, nause, or vomiting. Objective - Vitals Vitals: Last Vital Signs Selected Entries 05/02/17 06:11 Temperature 36.8 C Pulse Rate 69 Respiratory 18 Rate Blood Pressure 160/55 O2 Sat by Pulse 98 Oximetry Oxygen Delivery Room Air Method - Abnormal Lab Findings Abnormal Lab Findings: Abnormal Lab Results 05/02/17 05/02/17 Range/Units 10:43 10:43 RBC 3.16 L (4.2-5.4) M/mm3 Hgb 9.5 L (12.5-16.0) gm/dL Hct 27.3 L (37.0-47.0) % Neutrophils % 77.7 H (42-75.0) % Lymphocytes % 10.1 L (20-51) % Monocytes % 10.8 H (0.0-9) % Lymphocytes # 0.7 L (1.5-3.5) k/mm3 Sodium 131 L (132-142) mmol/L Est GFR (Non-Af Amer) 156 H D (60-130) mL/min Random Glucose 115 H (70-110) mg/dL Calcium 7.4 L (7.9-10.9) mg/dL Calcium Adj for Albumin 8.0 L (8.4-10.2) mg/dL Total Protein 6.0 L (6.2-8.2) gm/dL Albumin 2.8 L (3.4-5.0) gm/dl - Exam Constitutional: Present: Alert, Oriented x3, Cooperative Respiratory: Present: lungs clear, normal breath sounds Cardiovascular/Chest: Present: regular rate, rhythm, no murmur Abdomen: Present: Normal bowel sounds, soft, nontender, nondistended Skin Exam: Present: normal color, warm/dry, no cyanosis Assessment/Plan Plan Narrative: Sodium improving slowly, continue fluids. Will remove schmidt today and see if she is able to urinate on her own. - Problems/Diagnosis (1) Hyponatremia Problem: Acute (2) UTI (urinary tract infection) Problem: Acute (3) Constipation due to opioid therapy Problem: Resolved (4) Cystocele Problem: Acute Qualifiers: Cystocele location: midline Qualified Code(s): N81.11 - Cystocele, midline (5) Nausea and vomiting Problem: Resolved Qualifiers: Vomiting type: unspecified Vomiting Intractability: non-intractable Qualified Code(s): R11.2 - Nausea with vomiting, unspecified (6) Urinary retention Problem: Acute (7) Back pain Problem: Acute
--- NOTE | 2017-05-03 08:09 | DS ---
(1) Hyponatremia Problem: Acute (2) UTI (urinary tract infection) Problem: Acute (3) Constipation due to opioid therapy Problem: Resolved (4) Cystocele Problem: Acute Qualifiers: Cystocele location: midline Qualified Code(s): N81.11 - Cystocele, midline (5) Nausea and vomiting Problem: Resolved Qualifiers: Vomiting type: unspecified Vomiting Intractability: non-intractable Qualified Code(s): R11.2 - Nausea with vomiting, unspecified (6) Urinary retention Problem: Acute (7) Back pain Problem: Acute Description of Stay: Alem is an 86 yo female admitted for severe hyponatremia of 111, constipation, suspected UTI, urinary retention, back pain, and cystocele. She was suspected at being hypovolumic and treated with normal saline and sodium was closely monitored. This slowly improve back to normal over a few days. UTI was treated based on UA and culture sensitivities. She initially had a schmidt catheter in place for urinary retention, prior to discharge this was removed and she was able to urinate on her own without difficulty. Suspect the UTI caused her urinary retention. Constipation was treated with stool softeners and improved. She continued to be weak but improved and was discharged to [facility] for strengthening. After discharge from the hospital she was taken from her room to outpatient gynecology clinic for evaluation of her cystocele and possible pessary placement. From there she will then go to [facility]. Procedures Performed: none Discharge Disposition: [facility] Disposition: [facility] Condition: Good Discharge Activity: Activity as tolerated Discharge Diet: Low salt [facility] Therapy: Physicial Therapy Referrals: Mulugeta Castro DO [Primary Care Provider] - Two Weeks Problem Oriented Discharge Instructions to Patient/Family: Hyponatremia Additional Patient Instructions (free text): F/U with Dr Castro in 2 weeks. 05/18/17 at 10:00. [facility]. PT/OT to eval and tx. Prescriptions (Any new or edited meds): Sennosides/Docusate Sodium [Senokot-S] 2 tab PO HS #60 tablet Sulfamethoxazole/Trimethoprim [Bactrim Ds] 1 tab PO BID #10 tab Complete Home Medications List: Complete Home Medication List: Cetirizine HCl [Allergy Relief] 10 mg PO DAILY 09/19/13 Pantoprazole Sodium [Protonix] 20 mg PO BID #60 tablet. 04/21/15 Wheat Dextrin [Benefiber] 2 tsp PO DAILY #236 gm 04/26/15 Beta-Carotene(A) W-C , E/Min [Ocuvite] 1 tab PO DAILY 12/13/15 Calcium Carbonate/Vitamin D3 [Calcium 500+D Tablet Chew] 2 each PO DAILY Ginkgo Biloba Pegram Extract [Ginkgo Biloba] 400 mg PO DAILY 12/13/15 Albuterol Sulfate [Ventolin HFA] 2 puff INH Q6H PRN 12/18/15 Cyanocobalamin [Vitamin B-12] 1,000 mcg PO DAILY 12/18/15 FA/Vit C/E/Zinc/Copper/Lut/Ana [Ocuvel Capsule] 1 each PO DAILY 12/18/15 Multivit with Calcium,Iron,Min [Women's Daily Formula] 1 tab PO BID 12/18/15 oxyCODONE HCL/ACETAMINOPHEN [Percocet 5 MG/325 MG] 5 - 325 mg PO Q6H PRN Potassium 99 mg PO DAILY 03/05/16 Furosemide [Lasix] 40 mg PO DAILY PRN 04/21/17 amLODIPine BESYLATE [Norvasc] 5 mg PO HS 04/21/17 Budesonide/Formoterol Fumarate [Symbicort 160-4.5 Mcg Inhaler] 2 puff INH BID predniSONE [Prednisone] 40 mg PO DAILY 04/28/17 Sennosides/Docusate Sodium [Senokot-S] 2 tab PO HS #60 tablet 05/03/17 Sulfamethoxazole/Trimethoprim [Bactrim Ds] 1 tab PO BID #10 tab 05/03/17
[2017-05-03] MEDS: FLUTICASONE/SALMETEROL 14 PUFF DISK.W.DEV IH SCH (08:21)
[2017-05-03] MEDS: BETA-CAROTENE(A) W-C , E/MIN 1 TAB TABLET PO SCH (08:22)
[2017-05-03] MEDS: LORATADINE 10 MG TABLET PO SCH (08:22)
[2017-05-03] MEDS: CYANOCOBALAMIN 1,000 MCG TABLET PO SCH (08:22)
[2017-05-03 08:32] LABS: Anion Gap 7.8 mmol/L (6.8-13.8); BUN/Creatinine Ratio 8.5 (9.0-21.6); Calcium * 7.9 mg/dL (7.9-10.9); Carbon Dioxide 27.8 mmol/L (24-32.6); Estimated Creat Clear 46.7; Potassium 3.6 mmol/L (3.4-4.6)
[2017-05-03 11:18] VITALS: BP 165/74
== END 2017-05-03 13:45 | DRG 690 ==
LOC: ER 11:40 → MS 13:55 → OBSVTOIN 14:06
PROVIDERS: ADMIT Family Medicine; ATTEND Family Medicine
DX: N39.0 Urinary tract infection, site not specified (principal); E87.1 Hypo-osmolality and hyponatremia; N81.11 Cystocele, midline; K59.03 Drug induced constipation; T40.2X5A Adverse effect of other opioids, initial encounter; R11.2 Nausea with vomiting, unspecified; R33.9 Retention of urine, unspecified; M54.9 Dorsalgia, unspecified; I10 Essential (primary) hypertension; E78.5 Hyperlipidemia, unspecified; J44.9 Chronic obstructive pulmonary disease, unspecified; Z88.6 Allergy status to analgesic agent
CPT/HCPCS: 36415; 74020; 80048; 80053; 81001; 83605; 83880; 84295; 85025; 85652; 86140; 87040; 87086; 93005; 94640; 96365; 96375; 99285; J2405; 51702; 51798; 74019; 74177; 83519; 94664; 99284

== ENCOUNTER 2019-09-28 10:57 | Inpatient (IN) ==
[2019-09-28] MEDS ORDERED: BISACODYL 10 MG SUPP.RECT RC PRN (14:30)
[2019-09-28] MEDS ORDERED: SENNOSIDES/DOCUSATE SODIUM 1 TAB TABLET PO PRN (14:30)
[2019-09-28] MEDS ORDERED: ALBUTEROL SULFATE 2.5 MG/0.5 ML VIAL.NEB IH PRN (14:30)
[2019-09-28] MEDS: NORMAL SALINE 1,000 ML IV PRN (15:08)
[2019-09-28] MEDS: KETOROLAC TROMETHAMINE 15 MG/ML VIAL IV PRN ×2 (15:27→23:57)
[2019-09-28] MEDS: amLODIPine BESYLATE 5 MG TABLET PO SCH (17:17)
[2019-09-28] MEDS: SACCHAROMYCES BOULARDII 250 MG CAPSULE PO SCH (20:31)
[2019-09-28] MEDS: FLUTICASONE PROPION/SALMETEROL 14 PUFF DISK.W.DEV IH SCH (20:31)
--- NOTE | 2019-09-28 23:34 | HP ---
Chief Complaint - Chief Complaint Date of Service: 09/28/19 Time of Service: 12:30 Chief Complaint: Weakness History of Present Illness: Alem is an 89 yo female who for the last week reports having difficulty with bowel movement, abdominal pain, weakness, fatigue, and fell hitting her ribs and back. She was evaluated previously with rib xrays and abdominal xrays that showed no acute abnormalities. She came to clinic today due to worsening fatigue and weakness. Her family reports she has not been eating or drinking at home. She denies shortness of breath or chest pain. Medical History (Last Reviewed 09/28/19 @ 14:25 by Desirae Ferreira RN) Anemia Anxiety Onset Date: ~07/2013 Arthropathy Constipation, unspecified Cystocele Displaced intertrochanteric fracture of right femur, initial encounter for closed fracture Has received pneumococcal vaccination Onset Date: ~03/2018 Hip fracture Onset Date: 10/31/17 rt Nausea with vomiting, unspecified Received influenza vaccination in current influenza season prior to admission Onset Date: ~03/2018 COPD (chronic obstructive pulmonary disease) Onset Date: ~05/2011 Essential (primary) hypertension Onset Date: ~05/2011 Gastro-esophageal reflux disease without esophagitis Onset Date: ~05/2011 Hyperlipidemia Osteoarthritis Onset Date: ~08/2011 Osteoporosis Carpal tunnel syndrome Surgical History: Surgical History (Last Reviewed 09/28/19 @ 14:26 by Desiare Ferreira RN) Status post hip surgery Onset Date: 11/01/17 rt see op report H/O hernia repair History of abdominal hysterectomy Onset Date: ~1967 History of carpal tunnel release bilateral in 1969' History of colonoscopy Onset Date: ~06/2009 History of kyphoplasty Onset Date: 06/21/18 Dr. Ti Alan, [facility]. T12. History of laparoscopic cholecystectomy Onset Date: ~09/2008 History of tonsillectomy Hx of appendectomy Onset Date: ~1943 hernia repair Onset Date: ~09/2017 [place] Family History: Family History (Last Reviewed 09/28/19 @ 14:26 by Desirae Ferreira RN) Father , lung cancer Lung cancer Cancer Mother Colon cancer Brother Diabetes Brother Diabetes Brother CVA (cerebral vascular accident) Myocardial infarction Other CHF (congestive heart failure) Social History: (Last Updated 09/28/19 @ 14:28 by Desirae Ferreira RN) Social History: residential: Yes Marital status: / lives independently: Yes household members: none number of children: 2 caregivers: other current occupational status: retired current occupation: retired Service: No Tobacco: Smoking Status: Never smoker Alcohol: alcohol intake: never Substance Use: substance use type: does not use Dietary Habits: caffeine: Yes caffeine comment: everyday Type: coffee Personal Safety: victim of physical abuse: No victim of emotional abuse: No Review Of Systems (GEN) - Review of Systems Generalized/Overall Review: Present: Weakness, Fatigue. Absent: Chills, Fever, Diaphoresis EENTM: Present: No Symptoms Reported Respiratory: Absent: Cough, Shortness of Breath Cardiac: Absent: Chest Pain, Edema Abdominal: Present: Constipation. Absent: Nausea, Vomiting Genitourinary: Present: No Symptoms Reported Musculoskeletal: Present: Back Pain Neurological: Present: Weakness. Absent: Numbness Skin: Absent: Lesions, Change in Color Immunizations: IMMUNIZATION HX Immunizations Up to Date Yes History of Influenza Vaccine Yes Hx Pneumococcal Vaccination Yes Allergies/Adverse Reactions: Allergies Allergy/AdvReac Type Severity Reaction Status Date / Time streptomycin [Streptomycin] Allergy Severe "PASSED Verified 09/28/19 14:27 OUT" tramadol Allergy Severe "FELT LIKE Verified 09/28/19 14:27 THINGS WERE CLOSING UP" levofloxacin [From Levaquin] Allergy Other Verified 09/28/19 14:27 Home Medications: HOME MEDICATIONS Calcium Carbonate/Vitamin D3 [Calcium 600-Vit D3 400 Tablet] 1 ea PO DAILY 11/14/17 [Last Taken Unknown] sennosides 8.6 mg-docusate sodium 50 mg tablet 2 tab PO DAILY PRN #60 tab 12/08/17 [Last Taken Unknown] multivitamin 1 tab PO DAILY 02/28/18 [Last Taken Unknown] cyclobenzaprine 5 mg tablet 5 mg PO Q8H PRN #60 tab 06/07/18 [Last Taken Unknown] albuterol sulfate 2.5 mg IH Q4H PRN #180 ml 09/20/18 [Last Taken Unknown] cetirizine 10 mg capsule 10 mg PO DAILY #90 cap 09/20/18 [Last Taken Unknown] ibuprofen 200 mg tablet 200 mg PO .COMPLEX PRN 09/30/18 [Last Taken Unknown] potassium chloride 10 mEq capsule,extended release 20 meq PO DAILY #180 cap 12/08/18 [Last Taken Unknown] Saccharomyces boulardii 250 mg capsule 250 mg PO BID #180 cap 12/09/18 [Last Taken Unknown] furosemide 40 mg tablet 40 mg PO DAILY #90 tab 12/09/18 [Last Taken Unknown] pantoprazole 20 mg tablet,delayed release 20 mg PO Q48H #90 tab 01/11/19 [Last Taken Unknown] albuterol sulfate 90 mcg/actuation aerosol inhaler 2 puff IH Q6H PRN #1 unit 01/17/19 [Last Taken Unknown] budesonide-formoterol HFA 160 mcg-4.5 mcg/actuation aerosol inhaler 2 puff IH BID #1 unit 05/08/19 [Last Taken Unknown] amlodipine 5 mg tablet 5 mg PO DAILY #90 tab 09/04/19 [Last Taken Unknown] bisacodyl 10 mg rectal suppository 10 mg [place] DAILY PRN #8 ea 09/25/19 [Last Taken Unknown] Exam - Exam Vital Signs: Vital Signs - Last Taken Temp 36.8 C 09/28/19 18:15 Pulse 68 09/28/19 18:15 Resp 20 09/28/19 18:15 BP 160/95 H 09/28/19 18:15 Pulse Ox 97 09/28/19 18:15 Constitutional: Present: Alert, Oriented x3, Cooperative, Somnolent, Thin and frail ENT Exam: Present: hearing grossly normal Respiratory: Present: lungs clear, normal breath sounds Cardiovascular/Chest: Present: regular rate, rhythm, no edema, no murmur Peripheral Pulses: radial (R): 2+, radial (L): 2+ Abdomen: Present: Normal bowel sounds, soft, nontender, nondistended Skin Exam: Present: normal color, warm/dry, no cyanosis Assessment/Plan - Narrative Narrative: Alem is an 89yo female with: 1) Severe hyponatremia of 117 with weakness. She has not been eating or drinking well so I suspect this is hypovolumic hyponatremia. Will treat with normal saline at 75ml/hr will monitor sodium and adjust as needed. 2) Elevated liver enzymes - Will evaluate with US 3) Weakness - Will consult PT, due to hyponatremia and deconditioning. Will work with PT to prevent further deconditioning while hospitalized. Expect 2-3 midnights to correct sodium and have it remain stable. - Assessment/Plan (1) Hyponatremia Problem: Acute (2) Weakness Problem: Acute
[2019-09-28 23:54] LABS: Albumin * 2.5 gm/dl (3.4-5.0); Anion Gap 9.3 mmol/L (6.8-13.8); BUN/Creatinine Ratio 18.5 (9.0-21.6); Bilirubin, Total 0.5 mg/dL (0.0-1.1); Ca. Corrected For Albumin 8.7 mg/dL (8.4-10.2); Calcium * 7.8 mg/dL (7.9-10.9); Carbon Dioxide 27.7 mmol/L (24-32.6); Total Protein 5.5 gm/dL (6.2-8.2)
[2019-09-29] MEDS: NORMAL SALINE 1,000 ML IV PRN ×2 (04:35→18:02)
[2019-09-29] MEDS: KETOROLAC TROMETHAMINE 15 MG/ML VIAL IV PRN ×2 (06:28→16:14)
[2019-09-29 06:39] LABS: Hematocrit 26.5 % (37.0-47.0); Mean Cell Volume 86.9 fl (78-100); Mean Corpuscular Hemoglobin 29.5 pg (27-31); Mean Platelet Volume 8.8 fl (8-12.5); Neutrophil # 4.1 K/mm3 (1.3-6.0); Neutrophil % 75.2 % (42-75.0); Platelet Count 319 K/mm3 (150-450); Red Blood Count 3.05 M/mm3 (4.2-5.4); Red Cell Distribution Width 13.2 % (11.5-14.0); White Blood Count 5.5 K/mm3 (4.0-10.5)
[2019-09-29 06:52] LABS: Albumin * 2.6 gm/dl (3.4-5.0); Anion Gap 10.2 mmol/L (6.8-13.8); BUN/Creatinine Ratio 16.4 (9.0-21.6); Bilirubin, Total 0.6 mg/dL (0.0-1.1); Ca. Corrected For Albumin 8.5 mg/dL (8.4-10.2); Calcium * 7.7 mg/dL (7.9-10.9); Carbon Dioxide 27.5 mmol/L (24-32.6); Potassium 3.7 mmol/L (3.4-4.6); Total Protein 5.9 gm/dL (6.2-8.2)
[2019-09-29] MEDS ORDERED: PANTOPRAZOLE SODIUM 20 MG TABLET.DR PO SCH (07:00)
[2019-09-29] MEDS: FLUTICASONE PROPION/SALMETEROL 14 PUFF DISK.W.DEV IH SCH ×2 (08:15→20:09)
[2019-09-29] MEDS: MULTIVITAMINS 1 CAP CAPSULE PO SCH (08:15)
[2019-09-29] MEDS: LORATADINE 10 MG TABLET PO SCH (08:15)
[2019-09-29] MEDS: CALCIUM CARBONATE/VITAMIN D3 1 TAB TABLET PO SCH (08:15)
[2019-09-29] MEDS: SACCHAROMYCES BOULARDII 250 MG CAPSULE PO SCH ×2 (08:15→20:10)
[2019-09-29] MEDS: amLODIPine BESYLATE 5 MG TABLET PO SCH (08:19)
[2019-09-29 13:56] LABS: Anion Gap 11.1 mmol/L (6.8-13.8); BUN/Creatinine Ratio 18.2 (9.0-21.6); Bilirubin, Total 0.5 mg/dL (0.0-1.1); Ca. Corrected For Albumin 8.5 mg/dL (8.4-10.2); Carbon Dioxide 26.8 mmol/L (24-32.6); Potassium 3.9 mmol/L (3.4-4.6); Total Protein 6.5 gm/dL (6.2-8.2)
[2019-09-29] MEDS: CYCLOBENZAPRINE HCL 10 MG TABLET PO PRN (21:29)
--- NOTE | 2019-09-29 23:42 | PN ---
Subjective - Date and Time Seen Date: 09/29/19 Time: 12:45 Subjective Narrative: Alem feels much better today. She has more energy. She reports continued right upper back pain which feels better when massaged. Imaging has shown no fractures. She has had a bowel movement. Objective - Vitals Vitals: Last Vital Signs Temp 37 C 09/29/19 19:45 Pulse 70 09/29/19 19:45 Resp 22 H 09/29/19 19:45 BP 143/53 09/29/19 19:45 Pulse Ox 99 09/29/19 19:45 - Abnormal Lab Findings Abnormal Lab Findings: Abnormal Lab Results 09/28/19 09/29/19 09/29/19 Range/Units 23:38 06:20 06:20 RBC 3.05 L (4.2-5.4) M/mm3 Hgb 9.0 L (12.5-16.0) gm/dL Hct 26.5 L (37.0-47.0) % Immature Gran % (Auto) 0.50 H (0.001-0.429) % Neutrophils % 75.2 H (42-75.0) % Lymphocytes % 11.5 L (20-51) % Monocytes % 11.4 H (0.0-9) % Lymphocytes # 0.63 L (1.5-3.5) k/mm3 Sodium 123 L 128 L (132-142) mmol/L Plasma Sodium 123 L 128 L (130-142) mmol/L Chloride 90 L 94 L (97-106) mmol/L Random Glucose (70-110) mg/dL Calcium 7.8 L 7.7 L (7.9-10.9) mg/dL ALT 132 H 131 H (19-67) U/L Alkaline Phosphatase 246 H 255 H (50-170) U/L Total Protein 5.5 L 5.9 L (6.2-8.2) gm/dL Albumin 2.5 L 2.6 L (3.4-5.0) gm/dl 09/29/19 Range/Units 13:30 RBC (4.2-5.4) M/mm3 Hgb (12.5-16.0) gm/dL Hct (37.0-47.0) % Immature Gran % (Auto) (0.001-0.429) % Neutrophils % (42-75.0) % Lymphocytes % (20-51) % Monocytes % (0.0-9) % Lymphocytes # (1.5-3.5) k/mm3 Sodium 126 L (132-142) mmol/L Plasma Sodium 126 L (130-142) mmol/L Chloride 92 L (97-106) mmol/L Random Glucose 127 H D (70-110) mg/dL Calcium (7.9-10.9) mg/dL ALT 136 H (19-67) U/L Alkaline Phosphatase 283 H (50-170) U/L Total Protein (6.2-8.2) gm/dL Albumin 3.0 L (3.4-5.0) gm/dl - Exam Constitutional: Present: Alert, Oriented x3, Cooperative ENT Exam: Present: hearing grossly normal Respiratory: Present: lungs clear, normal breath sounds, no respiratory distress Cardiovascular/Chest: Present: regular rate, rhythm, edema Abdomen: Present: Normal bowel sounds, soft, nontender Assessment/Plan Plan Narrative: Sodium has improved in the last 24 hours with NS fluids. Sodium 128, initially 117. Will continue fluids at 75ml/hr and continue to monitor. - Problems/Diagnosis (1) Hyponatremia Problem: Acute (2) Weakness Problem: Acute
[2019-09-30] MEDS: KETOROLAC TROMETHAMINE 15 MG/ML VIAL IV PRN (02:48)
[2019-09-30 06:33] LABS: Albumin * 2.6 gm/dl (3.4-5.0); Anion Gap 9.5 mmol/L (6.8-13.8); BUN/Creatinine Ratio 14.3 (9.0-21.6); Bilirubin, Total 0.5 mg/dL (0.0-1.1); Ca. Corrected For Albumin 8.5 mg/dL (8.4-10.2); Calcium * 7.7 mg/dL (7.9-10.9); Carbon Dioxide 28.4 mmol/L (24-32.6); Potassium 3.9 mmol/L (3.4-4.6); Total Protein 5.7 gm/dL (6.2-8.2)
[2019-09-30] MEDS: NORMAL SALINE 1,000 ML IV PRN (07:32)
[2019-09-30] MEDS: CYCLOBENZAPRINE HCL 10 MG TABLET PO PRN (08:31)
[2019-09-30] MEDS: LORATADINE 10 MG TABLET PO SCH (08:32)
[2019-09-30] MEDS: CALCIUM CARBONATE/VITAMIN D3 1 TAB TABLET PO SCH (08:32)
[2019-09-30] MEDS: MULTIVITAMINS 1 CAP CAPSULE PO SCH (08:32)
[2019-09-30] MEDS: FLUTICASONE PROPION/SALMETEROL 14 PUFF DISK.W.DEV IH SCH (08:32)
[2019-09-30] MEDS: amLODIPine BESYLATE 5 MG TABLET PO SCH (08:33)
[2019-09-30] MEDS: SACCHAROMYCES BOULARDII 250 MG CAPSULE PO SCH (08:33)
--- NOTE | 2019-09-30 11:01 | DS ---
(1) Hyponatremia Problem: Resolved (2) Weakness Problem: Acute Date of Discharge:: 09/30/19 Hospital Course: Alem was admitted from clinic with weakness and fatigue secondary to severe hyponatremia of 117. This was related to hypovolumia and was treated with NS at 75ml/hr. Sodium gradually corrected and is back to normal today. She is much stronger and feels better today. She reports feeling back to her baseline. She would like home health at home with therapy to strengthen. Time was spent at discharge today for a face to face for home health. It is physically taxing for her to leave the home. She needs nursing to monitor her vitals and fluid status and breathing for COPD. She needs physical therapy and occupational therapy to strengthen and improve her ADLs. She will follow up in a week. Procedures Performed: none Results and Findings: Lab Pending Results 09/28/19 23:38: Sodium 123 L, Plasma Sodium 123 L, Potassium 4.0, Chloride 90 L, Carbon Dioxide 27.7, Anion Gap 9.3, BUN 10, Creatinine 0.54, Est GFR (Non-Af Amer) 113, BUN/Creatinine Ratio 18.5, Random Glucose 90, Calcium 7.8 L, Calcium Adj for Albumin 8.7, Total Bilirubin 0.5, AST 37, ALT 132 H, Alkaline Phosphatase 246 H, Total Protein 5.5 L, Albumin 2.5 L 09/29/19 06:20: WBC 5.5, RBC 3.05 L, Hgb 9.0 L, Hct 26.5 L, MCV 86.9, MCH 29.5, MCHC 34.0, RDW 13.2, Plt Count 319, MPV 8.8, Immature Gran % (Auto) 0.50 H, Immature Gran # (Auto) 0.03, Neutrophils % 75.2 H, Lymphocytes % 11.5 L, Monocytes % 11.4 H, Eosinophils % 0.9, Basophils % 0.5, Nucleated RBC % 0.0, Neutrophils # 4.1, Lymphocytes # 0.63 L, Monocytes # 0.6, Eosinophils # 0.1, Absolute Basophils 0.0 09/29/19 06:20: Sodium 128 L, Plasma Sodium 128 L, Potassium 3.7, Chloride 94 L, Carbon Dioxide 27.5, Anion Gap 10.2, BUN 9, Creatinine 0.55, Est GFR (Non-Af Amer) 111, BUN/Creatinine Ratio 16.4, Random Glucose 88, Calcium 7.7 L, Calcium Adj for Albumin 8.5, Total Bilirubin 0.6, AST 35, ALT 131 H, Alkaline Phosphatase 255 H, Total Protein 5.9 L, Albumin 2.6 L 09/29/19 13:30: Sodium 126 L, Plasma Sodium 126 L, Potassium 3.9, Chloride 92 L, Carbon Dioxide 26.8, Anion Gap 11.1, BUN 10, Creatinine 0.55, Est GFR (Non-Af Amer) 111, BUN/Creatinine Ratio 18.2, Random Glucose 127 H D, Calcium 8.0, Calcium Adj for Albumin 8.5, Total Bilirubin 0.5, AST 36, ALT 136 H, Alkaline Phosphatase 283 H, Total Protein 6.5, Albumin 3.0 L 09/30/19 06:16: Sodium 135, Plasma Sodium 135, Potassium 3.9, Chloride 101, Carbon Dioxide 28.4, Anion Gap 9.5, BUN 8, Creatinine 0.56, Est GFR (Non-Af Amer) 108, BUN/Creatinine Ratio 14.3, Random Glucose 106, Calcium 7.7 L, Calcium Adj for Albumin 8.5, Total Bilirubin 0.5, AST 27, ALT 103 H, Alkaline Phosph atase 245 H, Total Protein 5.7 L, Albumin 2.6 L Discharge Location: Home Disposition: Home Health Service Home Health Agency: [facility] Condition: Fair Face to Face Encounter completed per [facility] Guidelines: Yes Discharge Activity: Activity as tolerated Discharge Diet: General/regular food Referrals: Mulugeta Castro DO [Staff Physician] - One Week Problem Oriented Discharge Instructions to Patient/Family: Dehydration, Elderly, [id number] Additional Patient Instructions (free text): [facility] new, please fax discharge information, to them. Will need home health face to face in d/c summary. Home health with physical therapy and occupational therapy for strengthening. Complete Home Medications List: Complete Home Medication List: Calcium Carbonate/Vitamin D3 [Calcium 600-Vit D3 400 Tablet] 1 ea PO DAILY 11/14/17 sennosides 8.6 mg-docusate sodium 50 mg tablet 2 tab PO DAILY PRN #60 tab 12/08/17 multivitamin 1 tab PO DAILY 02/28/18 cyclobenzaprine 5 mg tablet 5 mg PO Q8H PRN #60 tab 06/07/18 albuterol sulfate 2.5 mg IH Q4H PRN #180 ml 09/20/18 cetirizine 10 mg capsule 10 mg PO DAILY #90 cap 09/20/18 ibuprofen 200 mg tablet 200 mg PO .COMPLEX PRN 09/30/18 potassium chloride 10 mEq capsule,extended release 20 meq PO DAILY #180 cap 12/08/18 Saccharomyces boulardii 250 mg capsule 250 mg PO BID #180 cap 12/09/18 furosemide 40 mg tablet 40 mg PO DAILY #90 tab 12/09/18 pantoprazole 20 mg tablet,delayed release 20 mg PO Q48H #90 tab 01/11/19 albuterol sulfate 90 mcg/actuation aerosol inhaler 2 puff IH Q6H PRN #1 unit 01/17/19 budesonide-formoterol HFA 160 mcg-4.5 mcg/actuation aerosol inhaler 2 puff IH BID #1 unit 05/08/19 amlodipine 5 mg tablet 5 mg PO DAILY #90 tab 09/04/19 bisacodyl 10 mg rectal suppository 10 mg [place] DAILY PRN #8 ea 09/25/19
[2019-09-30 12:45] VITALS: BP 149/53
== END 2019-09-30 13:05 | disposition home health service (06) | DRG 641 ==
LOC: CCFAL → RAD 10:57 → MS 12:58
PROVIDERS: ADMIT Family Medicine; ATTEND Family Medicine
DX: M15.9 Polyosteoarthritis, unspecified; R53.1 Weakness; R10.9 Unspecified abdominal pain; I10 Essential (primary) hypertension; Z68.1 Body mass index [BMI] 19.9 or less, adult; K59.00 Constipation, unspecified; E87.1 Hypo-osmolality and hyponatremia; E86.1 Hypovolemia; R11.10 Vomiting, unspecified; J44.9 Chronic obstructive pulmonary disease, unspecified; E78.5 Hyperlipidemia, unspecified
CPT/HCPCS: 36415; 71020; 71046; 72072; 76700; 80053; 84443; 85025; 97110; 97116; 97161

== ENCOUNTER 2020-03-19 00:23 | Observation (INO) ==
--- NOTE | 2020-03-19 00:38 | ERNOTE ---
GI Bleeding/Rectal Pain ER Date of Service: 03/19/20 Presenting Symptoms: rectal bleeding Time Seen by Provider: 03/19/20 00:38 Source: patient, family Exam Limitations: no limitations Immunizations: IMMUNIZATION HX Immunizations Up to Date Yes History of Influenza Vaccine Yes Hx Pneumococcal Vaccination Yes Allergies/Adverse Reactions: Allergies streptomycin [Streptomycin] Allergy (Severe, Verified 03/19/20 00:40) "PASSED OUT" tramadol Allergy (Severe, Verified 03/19/20 00:40) "FELT LIKE THINGS WERE CLOSING UP" ANAPHYLAXIS levofloxacin [From Levaquin] Allergy (Verified 03/19/20 00:40) Other Home Medications: HOME MEDICATIONS Calcium Carbonate/Vitamin D3 [Calcium 600-Vit D3 400 Tablet] 1 ea PO DAILY 11/14/17 [Last Taken Unknown] multivitamin 1 tab PO DAILY 02/28/18 [Last Taken Unknown] albuterol sulfate 2.5 mg IH Q4H PRN #180 ml 09/20/18 [Last Taken Unknown] amlodipine 5 mg tablet 5 mg PO DAILY #90 tab 09/04/19 [Last Taken Unknown] cetirizine 10 mg tablet 10 mg PO DAILY #30 tab 10/25/19 [Last Taken Unknown] budesonide-formoterol HFA 160 mcg-4.5 mcg/actuation aerosol inhaler 2 puff IH BID #1 unit 11/30/19 [Last Taken Unknown] Saccharomyces boulardii 250 mg capsule 250 mg PO BID #180 cap 12/20/19 [Last Taken Unknown] oxycodone-acetaminophen 5 mg-325 mg tablet 1 tab PO Q8H PRN #90 tab 01/05/20 [Last Taken Unknown] pantoprazole 20 mg tablet,delayed release 20 mg PO Q48H #45 tab 01/25/20 [Last Taken Unknown] furosemide 40 mg tablet 40 mg PO DAILY #90 tab 02/27/20 [Last Taken Unknown] potassium chloride 10 mEq capsule,extended release 20 meq PO DAILY #180 cap 02/27/20 [Last Taken Unknown] albuterol sulfate 90 mcg/actuation aerosol inhaler 2 puff IH Q6H PRN #1 unit 03/18/20 [Last Taken Unknown] Ferrous Sulfate [Iron] 325 mg PO Q48H 03/19/20 [Last Taken Unknown] Glucosam/Chond/Hyalu/Cf Borate [Move Free Joint Health Tablet] 1 ea PO DAILY 03/19/20 [Last Taken Unknown] Narrative: Patient is brought in by her daughter for loose stools and dark blood per rectum 4 separate times here in the last few hours. She states that she has felt fine otherwise, she then developed some general discomfort and cramping in the low abdomen, had diarrhea which then evolved into melena, maroon dark loose stools. She had these over the last few hours. She feels as if this is slowing down now since she has not passed any blood or dark stools here for the last hour or so. She has had 1 colonoscopy in her life by Dr. Lane who diagnosed her with diverticulosis. She did have a GI bleed, lower GI bleed in 2016 which was monitored conservatively. she took one 81 mg aspirin yesterday but she is not sure why, she states she was just feeling a little under the weather. She does not normally take this. She denies taking NSAID medication. She does take oxycodone for various aches and pains, takes one quarter of the pill in the morning, sometimes a quarter at noon and a half at night. This has not changed, she has been on this for quite some time.She denies any change in medications here recently. she reports she is feeling well now, does not feel lightheaded, no chest pain, no weakness. Date (Duration): 03/19/20 Timing: intermittent Nausea/Vomiting: Present: blood Review of Systems - Review of Systems Constitutional: Present: no symptoms reported. Absent: fever, weakness, fatigue, malaise ENT: Present: no symptoms reported Respiratory: Present: no symptoms reported Cardiology: Present: no symptoms reported Gastrointestinal/Abdominal: Present: See HPI Musculoskeletal: Present: no symptoms reported Skin: Present: no symptoms reported Medical History (Last Reviewed 03/19/20 @ 01:05 by Shira Live MD) Anemia Anxiety Onset Date: ~07/2013 Arthropathy Constipation, unspecified Cystocele Displaced intertrochanteric fracture of right femur, initial encounter for closed fracture Has received pneumococcal vaccination Onset Date: ~03/2018 Hip fracture Onset Date: 10/31/17 rt Influenza vaccine not given Onset Date: ~03/15/20 Patient has already received for the season. SAMARA Paz Nausea with vomiting, unspecified Received influenza vaccination in current influenza season prior to admission Onset Date: ~03/2018 COPD (chronic obstructive pulmonary disease) Onset Date: ~05/2011 Essential (primary) hypertension Onset Date: ~05/2011 Gastro-esophageal reflux disease without esophagitis Onset Date: ~05/2011 Hyperlipidemia Osteoarthritis Onset Date: ~08/2011 Osteoporosis Carpal tunnel syndrome Surgical History: Surgical History (Last Reviewed 03/19/20 @ 01:05 by Shira Live MD) Status post hip surgery Onset Date: 11/01/17 rt see op report H/O hernia repair History of abdominal hysterectomy Onset Date: ~1967 History of carpal tunnel release bilateral in 1970's History of colonoscopy Onset Date: ~06/2009 History of kyphoplasty Onset Date: 06/21/18 Dr. Ti Alan, [facility] [place]. T12. History of laparoscopic cholecystectomy Onset Date: ~09/2008 History of tonsillectomy Hx of appendectomy Onset Date: ~1943 hernia repair Onset Date: ~09/2017 [place] Family History: Family History (Last Reviewed 03/19/20 @ 01:05 by Shira Live MD) Father , lung cancer Lung cancer Cancer Mother Colon cancer Brother Diabetes Brother Diabetes Brother CVA (cerebral vascular accident) Myocardial infarction Other CHF (congestive heart failure) Social History: (Last Reviewed 03/19/20 @ 01:05 by Shira Live MD) Social History: custodial: Yes Marital status: / lives independently: Yes household members: none number of children: 2 caregivers: other current occupational status: retired current occupation: retired Service: No Tobacco: Smoking Status: Never smoker Alcohol: alcohol intake: never Substance Use: substance use type: does not use Dietary Habits: caffeine: Yes caffeine comment: everyday Type: coffee Personal Safety: victim of physical abuse: No victim of emotional abuse: No Physical Exam - Physical Exam General Appearance: Present: wd/wn, alert, no apparent distress Head Exam: Present: normal inspection Eye Exam: Normal inspection: bilateral, PERRL: bilateral Ears, Nose, Throat: Present: normal ENT inspection Neck: Present: normal inspection, nontender Respiratory: Present: no respiratory distress, lungs clear Cardiovascular/Chest: Present: regular rate, rhythm, no murmur Gastrointestinal/Abdominal: Present: normal bowel sounds, soft, other - Diffusely mildly tender to palpation. There is no rebound guarding or signs of peritonitis. No masses palpated, No HSM. No specific pain with palpation. Rectal Exam: Present: nontender - Retained rectal tone. There is presence of melena, dark maroon-colored stool present at the rectal opening., normal rectal tone Neurological Exam: Present: alert, oriented, normal mood/affect Skin Exam: Present: normal color, warm/dry Progress - Results and Orders Patient's Lab Results:: I have reviewed the patient's lab results. Results and Orders: Laboratory Tests 03/19/20 03/19/20 03/19/20 01:08 01:08 01:08 WBC 9.0 Hgb 7.8 L* D Hct 24.9 L Plt Count 284 PT 10.7 INR (Anticoag Therapy) 1.08 Sodium 136 Potassium 3.9 Chloride 102 BUN 33 H D Creatinine 0.82 Random Glucose 144 H AST 15 ALT 19 Alkaline Phosphatase 95 Troponin I Less than 0.017 Amylase 56 - Vital Signs Patient's Vital Signs:: I have reviewed the patient's vital signs. Vital Signs: Vital Signs 03/19/20 00:23 Temperature 36.5 C Pulse Rate 100 Respiratory Rate 18 Blood Pressure 157/61 H O2 Sat by Pulse Oximetry 100 - EKG EKG #1 EKG: NSR EKG read: Interp. by me EKG Comments: EKG shows normal sinus rhythm with occasional PVC, ventricular rate is 77, no ST changes. - X-Ray X-Ray #1 X-Ray: abdomen Interpretation: Interp. by me X-ray Comments: normal kub - Progress/Reassessment Chief Complaint: Rectal Bleeding Progress:: Unchanged Progress Note-Subjective: 03/19/20 02:21 Discussed work-up here with patient and family. Her hemoglobin is changed from 10.7 in October to 7.8 now. She has not had any additional melanotic stools since shortly before arrival to the ED E. She is hemodynamically stable now. She does admit to taking the aspirin before her symptoms onset. Contacted the hospitalist and recommended that the patient be admitted for observation of the GI bleed and stabilization. He agreed. Dr. Lane is on tomorrow at 8 AM who may be consulted for this as well. Patient's Covid test is pending. 03/19/20 03:42 covid is negative Departure Clinical Impression: GI bleed - Departure Disposition: Still a patient Condition: Good Referrals: Mulugeta Castro DO [Primary Care Provider] -
[2020-03-19] MEDS ORDERED: NORMAL SALINE 1,000 ML IV PRN (00:55)
[2020-03-19 01:15] LABS: Hematocrit 24.9 % (37.0-47.0); Mean Cell Volume 93.3 fl (78-100); Mean Corpuscular Hemoglobin 29.2 pg (27-31); Mean Corpuscular Hgb Conc 31.3 g/dl (32-36); Mean Platelet Volume 8.9 fl (8-12.5); Neutrophil # 7.7 K/mm3 (1.3-6.0); Neutrophil % 86.1 % (42-75.0); Platelet Count 284 K/mm3 (150-450); Red Blood Count 2.67 M/mm3 (4.2-5.4); Red Cell Distribution Width 13.4 % (11.5-14.0)
[2020-03-19 01:25] LABS: Hemoglobin 7.8 gm/dL (12.5-16.0)
[2020-03-19 01:28] LABS: Prothrombin Time (Patient) 10.7 Seconds (9.1-10.7)
[2020-03-19 01:30] LABS: INR 1.08 INR (0.92-1.08)
[2020-03-19 01:36] LABS: Troponin I Less than 0.017 ng/mL (0.00-0.10)
[2020-03-19 01:42] LABS: ALT 19 U/L (19-67); AST 15 U/L (0-48); Albumin * 2.9 gm/dl (3.4-5.0); Alkaline Phosphatase * 95 U/L (50-170); Amylase * 56 U/L (25-115); Anion Gap 13.1 mmol/L (6.8-13.8); BUN/Creatinine Ratio 40.2 (9.0-21.6); Bilirubin, Total 0.2 mg/dL (0.0-1.1); Bilirubin,Indirect 0.1 mg/dL (0.1-0.7); Blood Urea Nitrogen 33 mg/dL (3-23); CK Total * 71 U/L (0-259); CKMB 2.3 ng/mL (0.0-9.0); Calcium * 8.5 mg/dL (7.9-10.9); Carbon Dioxide 24.8 mmol/L (24-32.6); Chloride 102 mmol/L (97-106); Glucose * 144 mg/dL (70-110); Potassium 3.9 mmol/L (3.4-4.6); Sodium 136 mmol/L (132-142); Total Protein 6.1 gm/dL (6.2-8.2)
[2020-03-19] MEDS ORDERED: oxyCODONE HCL/ACETAMINOPHEN 1 TAB TABLET PO PRN (07:51)
[2020-03-19] MEDS ORDERED: PANTOPRAZOLE SODIUM 80 MG in NORMAL SALINE 100 ML IV ONE (07:56)
[2020-03-19] MEDS ORDERED: LORATADINE 10 MG TABLET PO SCH (09:00)
[2020-03-19] MEDS ORDERED: MULTIVITAMINS 1 CAP CAPSULE PO SCH (09:00)
[2020-03-19] MEDS ORDERED: FLUTICASONE PROPION/SALMETEROL 14 PUFF DISK.W.DEV IH SCH (09:00)
[2020-03-19] MEDS ORDERED: CALCIUM CARBONATE/VITAMIN D3 1 TAB TABLET PO SCH (09:00)
[2020-03-19] MEDS ORDERED: FUROSEMIDE 40 MG TABLET PO SCH (09:00)
[2020-03-19] MEDS ORDERED: SACCHAROMYCES BOULARDII 250 MG CAPSULE PO SCH (09:00)
[2020-03-19] MEDS ORDERED: POTASSIUM CHLORIDE 20 MEQ TABLET.SA PO SCH (09:00)
[2020-03-19] MEDS ORDERED: amLODIPine BESYLATE 5 MG TABLET PO SCH (09:00)
[2020-03-19 09:01] LABS: Mean Cell Volume 92.2 fl (78-100); Mean Corpuscular Hemoglobin 29.4 pg (27-31); Mean Corpuscular Hgb Conc 31.9 g/dl (32-36); Mean Platelet Volume 9.2 fl (8-12.5); Platelet Count 281 K/mm3 (150-450); Red Blood Count 2.45 M/mm3 (4.2-5.4); Red Cell Distribution Width 13.5 % (11.5-14.0); White Blood Count 6.9 K/mm3 (4.0-10.5)
[2020-03-19 09:07] LABS: Hemoglobin 7.2 gm/dL (12.5-16.0)
[2020-03-19 09:08] LABS: Hematocrit 22.6 % (37.0-47.0)
[2020-03-19 13:36] LABS: Mean Cell Volume 91.4 fl (78-100); Mean Corpuscular Hemoglobin 29.2 pg (27-31); Mean Corpuscular Hgb Conc 31.9 g/dl (32-36); Mean Platelet Volume 9.7 fl (8-12.5); Platelet Count 315 K/mm3 (150-450); Red Blood Count 2.57 M/mm3 (4.2-5.4); Red Cell Distribution Width 13.4 % (11.5-14.0); White Blood Count 6.9 K/mm3 (4.0-10.5)
[2020-03-19 13:39] LABS: Hematocrit 23.5 % (37.0-47.0); Hemoglobin 7.5 gm/dL (12.5-16.0)
[2020-03-19 14:21] VITALS: BP 134/53
--- NOTE | 2020-03-19 14:21 | HPDIS ---
Chief Complaint - Chief Complaint Date of Service: 03/19/20 Time of Service: 08:00 Chief Complaint: Anemia, GI Bleeding History of Present Illness: Alem is an 89 yo female that began having blood in her stool at 2300 last night. She reports that she had liver and onions for lunch and dinner last night, but has otherwise felt well. She presented to the [facility] ER and her Hgb was 7.8, which was down from 10 a few months ago. She currently takes Iron every other day due to history of iron deficiency anemia. She reports more than that causes constipation. This morning she reports doing well. She has not had a bowel movement since being admitted to the hospital. She has a little abdominal pain, but otherwise feels fine. Medical History (Last Reviewed 03/19/20 @ 04:39 by Fide Finney RN) Anemia Anxiety Onset Date: ~07/2013 Arthropathy Constipation, unspecified Cystocele Displaced intertrochanteric fracture of right femur, initial encounter for closed fracture Has received pneumococcal vaccination Onset Date: ~03/2018 Hip fracture Onset Date: 10/31/17 rt Influenza vaccine not given Onset Date: ~03/15/20 Patient has already received for the season. SAMARA Paz Nausea with vomiting, unspecified Received influenza vaccination in current influenza season prior to admission Onset Date: ~03/2018 COPD (chronic obstructive pulmonary disease) Onset Date: ~05/2011 Essential (primary) hypertension Onset Date: ~05/2011 Gastro-esophageal reflux disease without esophagitis Onset Date: ~05/2011 Hyperlipidemia Osteoarthritis Onset Date: ~08/2011 Osteoporosis Carpal tunnel syndrome Surgical History: Surgical History (Last Reviewed 03/19/20 @ 04:39 by Fide Finney RN) Status post hip surgery Onset Date: 11/01/17 rt see op report H/O hernia repair History of abdominal hysterectomy Onset Date: ~1967 History of carpal tunnel release bilateral in 1970's History of colonoscopy Onset Date: ~06/2009 History of kyphoplasty Onset Date: 06/21/18 Dr. Ti Alan, [facility]. T12. History of laparoscopic cholecystectomy Onset Date: ~09/2008 History of tonsillectomy Hx of appendectomy Onset Date: ~1943 hernia repair Onset Date: ~09/2017 [place] Family History: Family History (Last Reviewed 03/19/20 @ 04:40 by Fide Finney RN) Father , lung cancer Lung cancer Cancer Mother Colon cancer Brother Diabetes Brother Diabetes Brother CVA (cerebral vascular accident) Myocardial infarction Other CHF (congestive heart failure) Social History: (Last Updated 03/19/20 @ 04:40 by Fide Finney RN) Social History: fci: No Marital status: / lives independently: Yes household members: none number of children: 2 caregivers: other current occupational status: retired current occupation: retired Service: No Tobacco: Smoking Status: Never smoker Alcohol: alcohol intake: never Substance Use: substance use type: does not use Dietary Habits: caffeine: Yes caffeine comment: everyday Type: coffee Personal Safety: victim of physical abuse: No victim of emotional abuse: No Review Of Systems (GEN) - Review of Systems Generalized/Overall Review: Absent: Weakness, Chills, Fever EENTM: Present: No Symptoms Reported Respiratory: Absent: Cough, Shortness of Breath Cardiac: Absent: Chest Pain, Edema Abdominal: Present: Abdominal Pain, Melena. Absent: Nausea, Vomiting, Hematemesis, Constipation, Diarrhea Genitourinary: Present: No Symptoms Reported Musculoskeletal: Present: Back Pain Neurological: Present: No Symptoms Reported Skin: Present: No Symptoms Reported Endocrine: Present: No Symptoms Reported Immunizations: IMMUNIZATION HX Immunizations Up to Date Yes History of Influenza Vaccine Yes Hx Pneumococcal Vaccination Yes Allergies/Adverse Reactions: Allergies Allergy/AdvReac Type Severity Reaction Status Date / Time streptomycin [Streptomycin] Allergy Severe "PASSED Verified 03/19/20 00:40 OUT" tramadol Allergy Severe "FELT LIKE Verified 03/19/20 00:40 THINGS WERE CLOSING UP" levofloxacin [From Levaquin] Allergy Other Verified 03/19/20 00:40 Home Medications: HOME MEDICATIONS Calcium Carbonate/Vitamin D3 [Calcium 600-Vit D3 400 Tablet] 1 ea PO DAILY 11/14/17 [Last Taken Unknown] multivitamin 1 tab PO DAILY 02/28/18 [Last Taken Unknown] albuterol sulfate 2.5 mg IH Q4H PRN #180 ml 09/20/18 [Last Taken Unknown] amlodipine 5 mg tablet 5 mg PO DAILY #90 tab 09/04/19 [Last Taken Unknown] cetirizine 10 mg tablet 10 mg PO DAILY #30 tab 10/25/19 [Last Taken Unknown] budesonide-formoterol HFA 160 mcg-4.5 mcg/actuation aerosol inhaler 2 puff IH BID #1 unit 11/30/19 [Last Taken Unknown] Saccharomyces boulardii 250 mg capsule 250 mg PO BID #180 cap 12/20/19 [Last Taken Unknown] oxycodone-acetaminophen 5 mg-325 mg tablet 1 tab PO Q8H PRN #90 tab 01/05/20 [Last Taken Unknown] pantoprazole 20 mg tablet,delayed release 20 mg PO Q48H #45 tab 01/25/20 [Last Taken Unknown] furosemide 40 mg tablet 40 mg PO DAILY #90 tab 02/27/20 [Last Taken Unknown] potassium chloride 10 mEq capsule,extended release 20 meq PO DAILY #180 cap 02/27/20 [Last Taken Unknown] albuterol sulfate 90 mcg/actuation aerosol inhaler 2 puff IH Q6H PRN #1 unit 03/18/20 [Last Taken Unknown] Ferrous Sulfate [Iron] 325 mg PO DAILY #30 03/19/20 [Last Taken Unknown] Glucosam/Chond/Hyalu/Cf Borate [Move Free Joint Health Tablet] 1 ea PO DAILY 03/19/20 [Last Taken Unknown] Exam - Exam Vital Signs: Vital Signs - Last Taken Temp 37.2 C 03/19/20 11:00 Pulse 79 03/19/20 11:00 Resp 16 03/19/20 11:00 BP 138/53 03/19/20 11:00 Pulse Ox 99 03/19/20 11:00 Constitutional: Present: Alert, Oriented x3, Cooperative ENT Exam: Present: hearing grossly normal Eye Exam: bilateral eye: normal inspection Respiratory: Present: lungs clear, normal breath sounds Cardiovascular/Chest: Present: regular rate, rhythm, no murmur Abdomen: Present: Normal bowel sounds, soft, nontender, nondistended Extremity: Present: normal inspection Skin Exam: Present: normal color, warm/dry, no cyanosis Appearance: Present: appropriate appearance, appropriate insight, neat Eye contact: Present: cooperative, good eye contact, normal speech Thoughts: Present: normal thought pattern, no apparent hallucination Diagnostic Studies: Abnormal Lab Results 03/19/20 03/19/20 03/19/20 Range/Units 01:08 01:08 08:55 RBC 2.67 L 2.45 L (4.2-5.4) M/mm3 Hgb 7.8 L* D 7.2 L* (12.5-16.0) gm/dL Hct 24.9 L 22.6 L* (37.0-47.0) % MCHC 31.3 L 31.9 L (32-36) g/dl Neutrophils % 86.1 H (42-75.0) % Lymphocytes % 7.0 L (20-51) % Neutrophils # 7.7 H (1.3-6.0) K/mm3 Lymphocytes # 0.63 L (1.5-3.5) k/mm3 BUN 33 H D (3-23) mg/dL BUN/Creatinine Ratio 40.2 H (9.0-21.6) Random Glucose 144 H (70-110) mg/dL Total Protein 6.1 L (6.2-8.2) gm/dL Albumin 2.9 L (3.4-5.0) gm/dl 03/19/20 Range/Units 13:30 RBC 2.57 L (4.2-5.4) M/mm3 Hgb 7.5 L* (12.5-16.0) gm/dL Hct 23.5 L* (37.0-47.0) % MCHC 31.9 L (32-36) g/dl Neutrophils % (42-75.0) % Lymphocytes % (20-51) % Neutrophils # (1.3-6.0) K/mm3 Lymphocytes # (1.5-3.5) k/mm3 BUN (3-23) mg/dL BUN/Creatinine Ratio (9.0-21.6) Random Glucose (70-110) mg/dL Total Protein (6.2-8.2) gm/dL Albumin (3.4-5.0) gm/dl Laboratory Results WBC 6.9 K/mm3 (4.0-10.5) 03/19/20 13:30 RBC 2.57 M/mm3 (4.2-5.4) L 03/19/20 13:30 Hgb 7.5 gm/dL (12.5-16.0) L* 03/19/20 13:30 Hct 23.5 % (37.0-47.0) L* 03/19/20 13:30 MCV 91.4 fl (78-100) 03/19/20 13:30 MCH 29.2 pg (27-31) 03/19/20 13:30 MCHC 31.9 g/dl (32-36) L 03/19/20 13:30 RDW 13.4 % (11.5-14.0) 03/19/20 13:30 Plt Count 315 K/mm3 (150-450) 03/19/20 13:30 MPV 9.7 fl (8-12.5) 03/19/20 13:30 Immature Gran % (Auto) 0.30 % (0.001-0.429) 03/19/20 01:08 Immature Gran # (Auto) 0.03 K/mm3 (0.000-0.0310) 03/19/20 01:08 Neutrophils % 86.1 % (42-75.0) H 03/19/20 01:08 Lymphocytes % 7.0 % (20-51) L 03/19/20 01:08 Monocytes % 5.6 % (0.0-9) 03/19/20 01:08 Eosinophils % 0.7 % (0.0-3.0) 03/19/20 01:08 Basophils % 0.3 % (0.0-1.0) 03/19/20 01:08 Nucleated RBC % 0.0 k/mm3 (0-1) 03/19/20 01:08 Neutrophils # 7.7 K/mm3 (1.3-6.0) H 03/19/20 01:08 Lymphocytes # 0.63 k/mm3 (1.5-3.5) L 03/19/20 01:08 Monocytes # 0.5 k/mm3 (0.0-1.0) 03/19/20 01:08 Eosinophils # 0.1 k/mm3 (0.0-0.7) 03/19/20 01:08 Absolute Basophils 0.0 k/mm3 (0.0-0.1) 03/19/20 01:08 PT 10.7 Seconds (9.1-10.7) 03/19/20 01:08 INR (Anticoag Therapy) 1.08 INR (0.92-1.08) 03/19/20 01:08 PTT (Michael) 25.0 Seconds (24-32) 03/19/20 01:08 Sodium 136 mmol/L (132-142) 03/19/20 01:08 Plasma Sodium 137 mmol/L (130-142) 03/19/20 01:08 Potassium 3.9 mmol/L (3.4-4.6) 03/19/20 01:08 Chloride 102 mmol/L (97-106) 03/19/20 01:08 Carbon Dioxide 24.8 mmol/L (24-32.6) 03/19/20 01:08 Anion Gap 13.1 mmol/L (6.8-13.8) 03/19/20 01:08 BUN 33 mg/dL (3-23) H D 03/19/20 01:08 Creatinine 0.82 mg/dL (0.4-1.4) 03/19/20 01:08 Est GFR (Non-Af Amer) 70 mL/min (60-130) 03/19/20 01:08 BUN/Creatinine Ratio 40.2 (9.0-21.6) H 03/19/20 01:08 Random Glucose 144 mg/dL (70-110) H 03/19/20 01:08 Calcium 8.5 mg/dL (7.9-10.9) 03/19/20 01:08 Total Bilirubin 0.2 mg/dL (0.0-1.1) 03/19/20 01:08 Direct Bilirubin Less than 0.1 mg/dL (0.0-0.3) 03/19/20 01:08 Indirect Bilirubin 0.1 mg/dL (0.1-0.7) 03/19/20 01:08 AST 15 U/L (0-48) 03/19/20 01:08 ALT 19 U/L (19-67) 03/19/20 01:08 Alkaline Phosphatase 95 U/L (50-170) 03/19/20 01:08 Creatine Kinase 71 U/L (0-259) 03/19/20 01:08 CK-MB (CK-2) 2.3 ng/mL (0.0-9.0) 03/19/20 01:08 CK-MB (CK-2) Rel Index 3.2 (0.0-3.6) 03/19/20 01:08 Troponin I Less than 0.017 ng/mL (0.00-0.10) 03/19/20 01:08 Total Protein 6.1 gm/dL (6.2-8.2) L 03/19/20 01:08 Albumin 2.9 gm/dl (3.4-5.0) L 03/19/20 01:08 Amylase 56 U/L (25-115) 03/19/20 01:08 SARS-CoV-2 (PCR) Not detected (NotDetected) 03/19/20 02:19 Blood Type O Negative 03/19/20 01:08 Antibody Screen Negative 03/19/20 01:08 Assessment/Plan - Narrative Narrative: Alem will be admitted to observation for GI bleed with hemoglobin of 7.8. She has not had any bleeding since arriving to the ER. Will monitor with hemogram every 6 hours. Will give her an 80mg IV dose of protonix. If her hemoglobin is stable may be able to discharge later today if continues to do well. - Assessment/Plan (1) GI bleed Problem: Acute Qualifiers: (2) Anemia due to blood loss Problem: Acute (1) GI bleed Problem: Acute Qualifiers: GI bleed type/associated pathology: unspecified gastrointestinal hemorrhage type Qualified Code(s): K92.2 - Gastrointestinal hemorrhage, unspecified (2) Anemia due to blood loss Problem: Acute Date of Discharge:: 03/19/20 Hospital Course: Alem is an 89 yo female with GI bleed and hemoglobin of 7.8. Her baseline is near 10. She reportedly had blood in the stool last night, but since arriving in the ER she has had no bowel movements indicating the risk for active bleeding is very low. Her hemoglobin was monitored every 6 hours and was 7.8, then 7.2, and then 7.5 without any blood transfusions. As her hemoglobin is stable and she is not clinically bleeding, she is ok for home discharge today. She is currently taking iron every other day. I will have her increase this to daily and she will follow up in a week for recheck of hemoglobin. If she does not tolerate more oral iron may consider outpatient IV iron infusion. She declines colonoscopy at this time. Procedures Performed: none Results and Findings: Lab Pending Results 03/19/20 01:08: PT 10.7, INR (Anticoag Therapy) 1.08, PTT (Michael) 25.0 03/19/20 01:08: Sodium 136, Plasma Sodium 137, Potassium 3.9, Chloride 102, Carbon Dioxide 24.8, Anion Gap 13.1, BUN 33 H D, Creatinine 0.82, Est GFR (Non- Af Amer) 70, BUN/Creatinine Ratio 40.2 H, Random Glucose 144 H, Calcium 8.5, Total Bilirubin 0.2, Direct Bilirubin Less than 0.1, Indirect Bilirubin 0.1, AST 15, ALT 19, Alkaline Phosphatase 95, Creatine Kinase 71, CK-MB (CK-2) 2.3, CK-MB (CK-2) Rel Index 3.2, Troponin I Less than 0.017, Total Protein 6.1 L, Albumin 2.9 L, Amylase 56 03/19/20 01:08: Blood Type O Negative, Antibody Screen Negative 03/19/20 01:08: WBC 9.0, RBC 2.67 L, Hgb 7.8 L* D, Hct 24.9 L, MCV 93.3, MCH 29.2, MCHC 31.3 L, RDW 13.4, Plt Count 284, MPV 8.9, Immature Gran % (Auto) 0.30, Immature Gran # (Auto) 0.03, Neutrophils % 86.1 H, Lymphocytes % 7.0 L, Monocytes % 5.6, Eosinophils % 0.7, Basophils % 0.3, Nucleated RBC % 0.0, Neutrophils # 7.7 H, Lymphocytes # 0.63 L, Monocytes # 0.5, Eosinophils # 0.1, Absolute Basophils 0.0 03/19/20 02:19: SARS-CoV-2 (PCR) Not detected 03/19/20 08:55: WBC 6.9 D, RBC 2.45 L, Hgb 7.2 L*, Hct 22.6 L*, MCV 92.2, MCH 29.4, MCHC 31.9 L, RDW 13.5, Plt Count 281, MPV 9.2 03/19/20 13:30: WBC 6.9, RBC 2.57 L, Hgb 7.5 L*, Hct 23.5 L*, MCV 91.4, MCH 29.2, MCHC 31.9 L, RDW 13.4, Plt Count 315, MPV 9.7 Discharge Location: Home Disposition: Home self-care Condition: Good Discharge Activity: Activity as tolerated Discharge Diet: General/regular food Referrals: Mulugeta Castro DO [Primary Care Provider] - One Week Problem Oriented Discharge Instructions to Patient/Family: Gastrointestinal Bleeding, [id number] Prescriptions (Any new or edited meds): Ferrous Sulfate [Iron] 325 mg PO DAILY #30 Complete Home Medications List: Complete Home Medication List: Calcium Carbonate/Vitamin D3 [Calcium 600-Vit D3 400 Tablet] 1 ea PO DAILY 11/14/17 multivitamin 1 tab PO DAILY 02/28/18 albuterol sulfate 2.5 mg IH Q4H PRN #180 ml 09/20/18 amlodipine 5 mg tablet 5 mg PO DAILY #90 tab 09/04/19 cetirizine 10 mg tablet 10 mg PO DAILY #30 tab 10/25/19 budesonide-formoterol HFA 160 mcg-4.5 mcg/actuation aerosol inhaler 2 puff IH BID #1 unit 11/30/19 Saccharomyces boulardii 250 mg capsule 250 mg PO BID #180 cap 12/20/19 oxycodone-acetaminophen 5 mg-325 mg tablet 1 tab PO Q8H PRN #90 tab 01/05/20 pantoprazole 20 mg tablet,delayed release 20 mg PO Q48H #45 tab 01/25/20 furosemide 40 mg tablet 40 mg PO DAILY #90 tab 02/27/20 potassium chloride 10 mEq capsule,extended release 20 meq PO DAILY #180 cap 02/27/20 albuterol sulfate 90 mcg/actuation aerosol inhaler 2 puff IH Q6H PRN #1 unit 03/18/20 Ferrous Sulfate [Iron] 325 mg PO DAILY #30 03/19/20 Glucosam/Chond/Hyalu/Cf Borate [Move Free Joint Health Tablet] 1 ea PO DAILY 03/19/20 Forms: Patient Portal Registration
== END 2020-03-19 15:05 | disposition home or self-care (01) ==
LOC: MS 00:23 → ER 00:23 → MS 04:08
PROVIDERS: ADMIT Internal Medicine; ATTEND Family Medicine